=== PATIENT | female | born 1945 | race Caucasian/White ===

== ENCOUNTER 2018-05-21 18:43 | Inpatient (IN) ==
[2018-05-21 19:42] LABS: Bilirubin,Urine Negative (Negative); Blood,Urine Negative (Negative); Clarity,Urine Clear (Clear); Color,Urine Yellow (Yellow); Glucose,Urine (UA) 250 mg/dL (Normal); Ketones,Urine Negative (Negative); Leukocyte Esterase,Urine Negative (Negative); Nitrite,Urine Negative (Negative); Protein,Urine >=1000 mg/dL (Neg-Trace); Specific Gravity,Urine 1.025 (1.010-1.025); Urobilinogen,Urine Normal (Normal)
[2018-05-21 19:50] LABS: Bacteria,Urine None Seen per hpf (None-Few); Hyaline Casts,Urine None Seen per lpf (None-Few); Squamous Epithelial Cell,Urine Many per lpf (None-Few); WBC,Urine 15-30 per hpf (0-3)
[2018-05-21 20:05] LABS: Granular Casts,Urine Few per lpf (None Seen)
[2018-05-21 20:51] LABS: Basophils # 0.1 K/mcL (0.0-0.2); Basophils % 0.6 %; Eosinophils # 0.4 K/mcL (0.0-0.6); Eosinophils % 4.9 %; Hematocrit 27.6 % (35.3-44.9); Hemoglobin 8.8 g/dL (11.5-15.4); Immature Granulocytes % 0.3 % (0-4); Lymphocytes # 0.9 K/mcL (0.6-4.6); Lymphocytes % 10.7 %; Mean Corpuscular HGB Conc 31.9 g/dL (31.6-35.5); Mean Corpuscular Hemoglobin 29.3 pg (28.0-33.3); Mean Platelet Volume 10.3 fL (9.4-12.4); Monocytes # 0.6 K/mcL (0.0-1.3); Monocytes % 7.3 %; Neutrophils # 6.1 K/mcL (1.6-8.9); Platelet Count 270 K/mcL (140-400); Red Cell Distribution Width 13.3 % (11.5-14.5); Segmented Neutrophils % 76.2 %
[2018-05-21 21:29] LABS: Albumin 2.7 g/dL (3.5-5.7); Albumin/Globulin Ratio 0.8 (1.1-2.2); Bilirubin,Indirect 0.3 mg/dL (0.0-1.2); Bilirubin,Total 0.3 mg/dL (0.3-1.0); Calcium 8.8 mg/dL (8.6-10.3); Globulin 3.2 g/dL (2.4-3.5); Potassium 4.1 mEq/L (3.5-5.1); Total Protein 5.9 g/dL (6.4-8.9)
[2018-05-21] MEDS ORDERED: 0.9 % Sodium Chloride 1,000 ML IVC ONE (22:03)
[2018-05-21] MEDS ORDERED: Ondansetron 4 MG/2 ML VIAL IVP STA (22:03)
[2018-05-21] MEDS ORDERED: *HR* HYDROmorphone (PF) 1 MG/ML SYRINGE IVP ONE (22:03)
--- NOTE | 2018-05-21 22:06 | Emergency Department Note ---
Disposition Clinical Impression: Abdominal aortic atherosclerosis, Pancreatic mass, Renal mass Pancreatitis Qualifiers: Chronicity: acute Pancreatitis type: other Acute pancreatitis complication: unspecified Qualified Code(s): K85.80 - Other acute pancreatitis without necrosis or infection Disposition: Admitted As Inpatient Condition: Fair Time of Disposition: 22:55 Abdominal Pain HPI - General Chief Complaint: ED Abdominal Pain Stated Complaint: "Been Pretty Sick" Time Seen by Provider: 05/21/18 21:46 Source: patient Limitations: no limitations, age Vital Signs Reviewed: Yes - History of Present Illness HPI Narrative: Diabetic female patient presenting to emergency department with a three-day history of upper abdominal pain. She states her by mouth intake has been significantly decreased due to the pain. States that she is able to eat despite her tuning gets extreme pain in her upper abdomen. Denies any nausea or vomiting. Denies any trouble urinating or defecating. Does have a history of chronic kidney disease and has had a shunt placed in her right forearm for suspected need for dialysis in the future. She sees nephrology at [facility]. Does have a history of cardiac disease and has a pacemaker placed. She does report a cough. Denies any shortness of breath or chest pain. Has not tried anything to make this better or worse. No history of pancreatitis. She did have labs drawn in triage which showed an elevated lipase. Also an elevated creatinine. The creatinine is higher than her normal. Her hemoglobin is slightly lower but it is consistent with previous hematomas. We will get a CT of patient's abdomen and provide patient with pain relief at this time. We will also give her a liter of fluid. She does have pain to palpation of her epigastric and left upper quadrant. Pain Scale: 10 - Related Data Home Medications Medication Instructions Recorded Confirmed Aspirin [Ecotrin] 325 mg PO DAILY 03/19/16 03/19/16 Atorvastatin [Lipitor] 80 mg PO HS 03/19/16 03/19/16 Biotin 1,000 mcg PO BID 03/19/16 03/19/16 Cholecalciferol (Vitamin D3) 1,000 unit PO 1-3XD 03/19/16 03/19/16 [Vitamin D3] Clopidogrel [Plavix] 75 mg PO DAILY 03/19/16 03/19/16 Fenofibrate 150 mg PO DAILY 03/19/16 03/19/16 Gabapentin 300 mg PO DAILY 03/19/16 03/19/16 Hyoscyamine 0.125 mg PO Q8H PRN 03/19/16 03/20/16 Insulin ASPART [Novolog] 0 unit SQ ACHS 03/19/16 03/19/16 Insulin Glargine [Lantus] 50 unit SQ HS 03/19/16 03/19/16 Iron 65 mg PO DAILY 03/19/16 03/19/16 Isosorbide DInitrate [Isosorbide 20 mg PO DAILY 03/19/16 03/20/16 Dinitrate] Mecobalamin [B-12] 1,000 mcg PO DAILY 03/19/16 03/19/16 Metoprolol 100 mg PO DAILY 03/19/16 03/19/16 Ranitidine HCl 150 mg PO 1-2XD 03/19/16 03/19/16 Saxagliptin HCl [Onglyza] 5 mg PO DAILY 03/19/16 03/19/16 Vitamin E 400 unit PO DAILY 03/19/16 03/19/16 Previous Rx's Medication Instructions Recorded Furosemide [Lasix] 20 mg PO DAILY 365 Days 03/21/16 Lisinopril [Zestril] 40 mg PO DAILY #60 tablet 03/21/16 amLODIPine [Norvasc] 5 mg PO DAILY #30 tablet 03/21/16 hydrALAZINE [HydrALAZINE] 50 mg PO Q8H #90 tablet 03/21/16 Allergies Allergy/AdvReac Type Severity Reaction Status Date / Time olmesartan [From Benicar] Allergy Mild Gastrointestinal Verified 03/19/16 17:04 Upset Labetalol Allergy Gastrointestinal Verified 03/19/16 17:04 Upset All systems ED: reviewed and negative except as stated. Review of Systems: As Per HPI Constitutional: Reports: chills. Denies: fever Cardiovascular: Denies: chest pain, palpitations, syncope Respiratory: Reports: cough, wheezes. Denies: dyspnea Gastrointestinal: Reports: abdominal pain (3 days, epigastric), nausea. Denies: vomiting, diarrhea, hematemesis, melena, hematochezia Musculoskeletal: Reports: back pain (radiates from abdomen to back) Abdominal Pain PMH - Past Medical History Medical history: Reports: diabetes, hypertension, renal disease, other Female Surgical History: Reports: coronary bypass (CABG), hysterectomy, other Psychiatric history: Reports: no psych history - Social History Smoking status: Never smoker Alcohol use: Reports: none Drug use: Reports: none Physical Exam - General Limitations: no limitations General appearance: alert, in distress (in pain) - Head Head exam: atraumatic, normocephalic, normal inspection - Eye Eye exam: Present: normal appearance, PERRL, EOMI - ENT ENT exam: normal exam, normal oropharynx, mucous membranes moist - Neck Neck exam: Present: normal inspection, full ROM, trachea midline - Chest Chest inspection: Present: normal inspection, symmetric chest wall rise - Respiratory Respiratory exam: Present: normal lung sounds bilaterally. Absent: respiratory distress, wheezes, accessory muscle use - Cardiovascular Cardiovascular exam: Present: regular rate, normal rhythm, normal heart sounds - Abdominal Exam Abdominal exam: Present: soft, tenderness (epigastric, upper quadrants), guarding. Absent: distention, rebound, rigidity, organomegaly - Extremities Exam Extremities exam: Present: normal inspection, full ROM, normal capillary refill. Absent: tenderness, pedal edema - Neurological Exam Neurological exam: Present: alert, oriented X3 - Psychiatric Psychiatric exam: Present: normal affect, normal mood - Skin Skin exam: Present: warm, dry, intact, normal color. Absent: rash, cyanosis, diaphoresis Course Course Narrative: I discussed the patient's CT findings with her. We discussed that she has a small mass on her pancreas. She did not know about this. We discussed her worsening kidney function as well as the mass on her kidney. She states she was told previously that she did have a masseter kidney that needed to be evaluated however does not sound like it was as big the time. She is agreeable to admission at this time. We did provide patient with oral glucose that she was noted to have a lower glucose and we will place her on maintenance fluid. We also ordered a lactate as well as an EKG. - Consultations Consultation #1: Dr. Guzman accepted patient in stable condition. Time: 22:54 Vital Signs Temperature 98.7 F 05/21/18 19:04 Pulse Rate 61 05/21/18 19:04 Respiratory Rate 18 05/21/18 19:04 Blood Pressure 186/70 05/21/18 19:04 O2 Sat by Pulse Oximetry 99 05/21/18 19:04 Temperature 98.7 F 05/21/18 19:04 Pulse Rate 61 05/21/18 19:04 Respiratory Rate 18 04/05/19 19:04 Blood Pressure 186/70 05/21/18 19:04 O2 Sat by Pulse Oximetry 99 05/21/18 19:04 Oxygen Delivery Oxygen Delivery Room Air Abdominal Pain - Medical Records Medical records reviewed: Yes I reviewed the patient's medical records. - Lab Data Lab results reviewed: Yes I reviewed the patient's lab results. Result diagrams: 05/21/18 20:24 05/21/18 20:24 Lab Results 05/21/18 05/21/18 05/21/18 Range/Units 19:24 20:24 20:24 WBC 8.0 (4.3-11.1) K/mcL RBC 3.00 L (3.82-4.97) M/mcL Hgb 8.8 L (11.5-15.4) g/dL Hct 27.6 L (35.3-44.9) % MCV 92.0 (83.0-100.0) fL MCH 29.3 (28.0-33.3) pg MCHC 31.9 (31.6-35.5) g/dL RDW 13.3 (11.5-14.5) % Plt Count 270 (140-400) K/mcL MPV 10.3 (9.4-12.4) fL Immature Gran % 0.3 (0-4) % Seg Neutrophils % 76.2 % Lymphocytes % 10.7 % Monocytes % 7.3 % Eosinophils % 4.9 % Basophils % 0.6 % Neutrophils # 6.1 (1.6-8.9) K/mcL Lymphocytes # 0.9 (0.6-4.6) K/mcL Monocytes # 0.6 (0.0-1.3) K/mcL Eosinophils # 0.4 (0.0-0.6) K/mcL Basophils # 0.1 (0.0-0.2) K/mcL Sodium 141 (136-145) mEq/L Potassium 4.1 (3.5-5.1) mEq/L Chloride 109 H (98-107) mEq/L Carbon Dioxide 18 L (23-29) mEq/L BUN 86 H (8-23) mg/dL Creatinine 5.28 H (0.60-1.20) mg/dL Est GFR ( Amer) 10 L (> 60) Est GFR (Non-Af Amer) 8 L (> 60) BUN/Creatinine Ratio 16 (6-26) Glucose 78 (70-105) mg/dL POC Glucose (70-99) mg/dL Calculated Osmolality 317 H (280-300) Lactic Acid (0.5-2.2) mmol/L Calcium 8.8 (8.6-10.3) mg/dL Total Bilirubin 0.3 (0.3-1.0) mg/dL Direct Bilirubin 0.0 (0.0-0.2) mg/dL Indirect Bilirubin 0.3 (0.0-1.2) mg/dL AST 30 (13-39) Units/L ALT 22 (7-52) Units/L Alkaline Phosphatase 140 H (34-104) Units/L Serum Total Protein 5.9 L (6.4-8.9) g/dL Albumin 2.7 L (3.5-5.7) g/dL Globulin 3.2 (2.4-3.5) g/dL Albumin/Globulin Ratio 0.8 L (1.1-2.2) Lipase 803 H (11-82) Units/L Urine Color Yellow (Yellow) Urine Clarity Clear (Clear) Urine pH 6.0 (5.0-8.0) pH Units Ur Specific [place] 1.025 (1.010-1.025) Urine Protein >=1000 H (Neg-Trace) mg/dL Urine Glucose (UA) 250 H (Normal) mg/dL Urine Ketones Negative (Negative) mg/dL Urine Blood Negative (Negative) Urine Nitrite Negative (Negative) Urine Bilirubin Negative (Negative) Urine Urobilinogen Normal (Normal) mg/dL Ur Leukocyte Esterase Negative (Negative) Urine Microscopic RBC 3-5 H (0-3) per hpf Urine Microscopic WBC 15-30 H (0-3) per hpf Ur Squamous Epith Cells Many H (None-Few) per lpf Urine Bacteria None Seen (None-Few) per hpf Hyaline Casts None Seen (None-Few) per lpf Granular Casts Few H (None Seen) per lpf Ur Culture Indicated? NO (NO) 05/21/18 05/21/18 Range/Units 22:34 22:52 WBC (4.3-11.1) K/mcL RBC (3.82-4.97) M/mcL Hgb (11.5-15.4) g/dL Hct (35.3-44.9) % MCV (83.0-100.0) fL MCH (28.0-33.3) pg MCHC (31.6-35.5) g/dL RDW (11.5-14.5) % Plt Count (140-400) K/mcL MPV (9.4-12.4) fL Immature Gran % (0-4) % Seg Neutrophils % % Lymphocytes % % Monocytes % % Eosinophils % % Basophils % % Neutrophils # (1.6-8.9) K/mcL Lymphocytes # (0.6-4.6) K/mcL Monocytes # (0.0-1.3) K/mcL Eosinophils # (0.0-0.6) K/mcL Basophils # (0.0-0.2) K/mcL Sodium (136-145) mEq/L Potassium (3.5-5.1) mEq/L Chloride (98-107) mEq/L Carbon Dioxide (23-29) mEq/L BUN (8-23) mg/dL Creatinine (0.60-1.20) mg/dL Est GFR ( Amer) (> 60) Est GFR (Non-Af Amer) (> 60) BUN/Creatinine Ratio (6-26) Glucose (70-105) mg/dL POC Glucose 67 L (70-99) mg/dL Calculated Osmolality (280-300) Lactic Acid 0.3 L (0.5-2.2) mmol/L Calcium (8.6-10.3) mg/dL Total Bilirubin (0.3-1.0) mg/dL Direct Bilirubin (0.0-0.2) mg/dL Indirect Bilirubin (0.0-1.2) mg/dL AST (13-39) Units/L ALT (7-52) Units/L Alkaline Phosphatase (34-104) Units/L Serum Total Protein (6.4-8.9) g/dL Albumin (3.5-5.7) g/dL Globulin (2.4-3.5) g/dL Albumin/Globulin Ratio (1.1-2.2) Lipase (11-82) Units/L Urine Color (Yellow) Urine Clarity (Clear) Urine pH (5.0-8.0) pH Units Ur Specific [place] (1.010-1.025) Urine Protein (Neg-Trace) mg/dL Urine Glucose (UA) (Normal) mg/dL Urine Ketones (Negative) mg/dL Urine Blood (Negative) Urine Nitrite (Negative) Urine Bilirubin (Negative) Urine Urobilinogen (Normal) mg/dL Ur Leukocyte Esterase (Negative) Urine Microscopic RBC (0-3) per hpf Urine Microscopic WBC (0-3) per hpf Ur Squamous Epith Cells (None-Few) per lpf Urine Bacteria (None-Few) per hpf Hyaline Casts (None-Few) per lpf Granular Casts (None Seen) per lpf Ur Culture Indicated? (NO) - Radiology Data Radiology results reviewed: Yes I reviewed the patient's radiology results. Abdomen/Pelvis CT 05/21/18 21:49 IMPRESSION: Acute interstitial edematous pancreatitis. No acute peripancreatic fluid collection. Left renal inferior pole exophytic mass is suspicious for renal cell carcinoma. Consider dedicated renal protocol CT or MRI. Features of volume overload, including small bilateral pleural effusions, soft tissue anasarca and pelvic ascites which likely reflects third-spacing of fluid related to pancreatitis. Heavy aortic and branch vessel atherosclerotic calcifications with probable severe narrowing at the superior mesenteric artery origin. 8 mm focus within the pancreatic body most likely represents a tiny IPMN. D/ / 05/21/2018 22:29:23 Juan Orozco / [facility] Interpreting Provider: Juan Orozco Chest X-Ray 05/21/18 22:05 IMPRESSION: Small pleural effusions. D/ / 05/21/2018 22:33:56 Addi Caal MD / [facility] Interpreting Provider: Addi Caal MD - EKG Data EKG attestation: Yes I reviewed and interpreted this EKG. EKG results narrative: Atrially paced rhythm at a rate of 67. QRS duration is 158. QT is 478. QTC is 501. Patient does have a right bundle branch block. We do have an old EKG from 2017 shows a different morphology. Patient does not meet scarbossa criteria Attestation Statement - Attestation Attestation: I, Arpan Gutierrez, examined this patient and my medical decision-making was reviewed with the ALARM SERVICE TECHNICIAN/PA/Advanced Practice Nurse/Resident Physician. I agree with the documented findings, disposition and treatment plan as described except to the extent set forth below. 73-year-old female presents emergency Department with concerns of nausea, vomiting, epigastric abdominal pain. Patient states symptoms present over the past 3 days. Denies recent trauma. No history of pancreatitis. Patient had labs that were drawn in the lobby. Review of these labs during her initial evaluation shows that she has a significantly elevated lipase compared to previous labs. Patient presentation is consistent with pancreatitis. CT CT of the abdomen shows acute pancreatitis with possible IPMN. Patient given a liter fluid emergency department. Her pain is well controlled. She felt comfortable with the plan for admission to hospital for further care and evaluation.
[2018-05-21] MEDS ORDERED: Dextrose Gel 15 GM/37.5 ML TUBE PO STA (22:36)
[2018-05-21] MEDS: D5% in 0.9% NACL 1,000 ML IVC SCH (22:56)
[2018-05-22] MEDS ORDERED: Naloxone 0.4 MG/ML INJ IVP PRN (01:20)
[2018-05-22] MEDS ORDERED: Ringers Solution, Lactated 1,000 ML IVC SCH (01:30)
[2018-05-22] MEDS ORDERED: *HR* Dextrose 50 % in Water (Syg) 50 ML SYRINGE IVP PRN (01:35)
[2018-05-22] MEDS ORDERED: Dextrose Gel 15 GM/37.5 ML TUBE PO PRN ×2 (01:35)
[2018-05-22] MEDS ORDERED: D5% in Water 1,000 ML IVC PRN (01:35)
--- NOTE | 2018-05-22 01:46 | Internal Med History&Physical ---
<DrewJaqueline lrra C - Last Filed: 05/22/18 05:21> Date of Encounter: 05/22/18 Time of Encounter: 03:03 Internal Medicine - H&P: HPI Chief complaint: abdominal pain Admitted From: Emergency Dept History of present illness: Ms. Singleton is a 73 year old female with a history of ESRD, CAD s/p pacemaker, CABG and stents, hypertension, and diabetes who presented to the ER with complaint of severe abdominal pain for the past 3 days, found to have acute pancreatitis and suspicious pancreatic and renal lesions. She admits to decreased oral intake, but denies nausea or vomiting and has been able to take her home medications. She denies any previous episodes of pancreatitis. Denies alcohol use. She denies any recent sick contacts, fever, chills, diarrhea or constipation. She states that she has not been well for at least the past year and is unsure why exactly her health has declined. She receives most of her medical care in [place] including her bisque finisher at [facility]. She had a fistula placed approximately 7 weeks ago anticipating need for dialysis. She reports history of renal cyst that has been followed by nephrology at [facility]. She admits to chronic lower extremity edema and takes 80 mg Lasix twice a day. She denies any lightheadedness, chest pain, palpitations, shortness of breath, or urinary symptoms. ER course: Afebrile, HR 61, RR 18, BP 186/70, 99% on room air Hemoglobin 8.8, near baseline PT/INR 12.6 over 1.1 Potassium 4.1 Creatinine 5.28 GFR 8, approximate baseline of 4 with GFR of 15 Lactic acid 0.3 T bili 0.3, AST 30, ALT 22, alkaline phosphatase 140 Lipase 803 POC glucose 67 UA protein greater than 1000, glucose 250, nitrite negative, leukocyte esterase negative CXR small bilateral pleural effusions CT abdomen/pelvis acute pancreatitis without fluid collection. Left renal exophytic mass suspicious for RCC. Small bilateral pleural effusions, soft tissue anasarca and pelvic ascites. 8 mm focus within pancreatic body suspicious for IPMN. s/p 1 L NS fluid bolus Hydromorphone 1 mg IV 1 Glucose 15 g by mouth 1 Zofran 8 mg IV 1 Past Med Surg Social Fam HX - Past Medical History Medical history: diabetes, hypertension, renal disease, other Additional medical history: Stage 4 Kidney Failure Psychiatric history: no psych history - Past Surgical History Surgical History: coronary bypass (CABG), hysterectomy, pacemaker/AICD Additional surgical history: Gallbadder removal , triple bypass 94 - Social History Smoking Status: Never smoker Smokeless Tobacco Status: No Alcohol use: none Drug use: none - Family History Mother Hx Family Cardiac Disorders: Yes (hypertension) Internal Medicine - H&P: Meds Aspirin [Ecotrin] 81 mg PO DAILY 03/19/16 [History] Atorvastatin [Lipitor] 80 mg PO HS 03/19/16 [History] Biotin 1,000 mcg PO BID 03/19/16 [History] Cholecalciferol (Vitamin D3) [Vitamin D3] 1,000 unit PO 1-3XD 03/19/16 [History] Clopidogrel [Plavix] 75 mg PO DAILY 03/19/16 [History] Fenofibrate 150 mg PO DAILY 03/19/16 [History] Gabapentin 300 mg PO DAILY 03/19/16 [History] Hyoscyamine 0.125 mg PO Q8H PRN 03/19/16 [History] Insulin ASPART [Novolog] 0 unit SQ ACHS 03/19/16 [History] Insulin Glargine [Lantus] 20 unit SQ DAILY 03/19/16 [History] Iron 65 mg PO DAILY 03/19/16 [History] Isosorbide DInitrate [Isosorbide Dinitrate] 20 mg PO BID 03/19/16 [History] Mecobalamin [B-12] 1,000 mcg PO DAILY 03/19/16 [History] Metoprolol 100 mg PO DAILY 03/19/16 [History] Ranitidine HCl 150 mg PO 1-2XD 03/19/16 [History] Saxagliptin HCl [Onglyza] 5 mg PO DAILY 03/19/16 [History] Vitamin E 400 unit PO DAILY 03/19/16 [History] Lisinopril [Zestril] 40 mg PO DAILY #60 tablet 03/21/16 [Rx] amLODIPine [Norvasc] 5 mg PO DAILY #30 tablet 03/21/16 [Rx] Furosemide [Lasix] 20 mg PO BID 05/22/18 [History] hydrALAZINE [HydrALAZINE] 100 mg PO Q12HR 05/22/18 [History] Allergy/AdvReac Type Severity Reaction Status Date / Time olmesartan [From Benicar] Allergy Mild Gastrointestinal Verified 03/19/16 17:04 Upset Labetalol Allergy Gastrointestinal Verified 03/19/16 17:04 Upset All Systems PM: A 10-system review of systems was performed and is negative for pertinent findings except as documented above in the HPI. - Constitutional Constitutional: no chills, no fever(s) - EENT Eyes: no blurry vision, no change in vision - Cardiovascular Cardiovascular ROS IM: edema, lightheadedness (when her glucose is low), no chest pain, no dyspnea, no palpitations, no syncope - Respiratory Respiratory: no cough, no dyspnea, no hemoptysis - Gastrointestinal Gastrointestinal: abdominal pain, belching, no change in bowel habits, no hematemesis, no hematochezia, no melena, no nausea, no vomiting - Genitourinary Genitourinary: no dysuria, no hematuria - Musculoskeletal Musculoskeletal ROS IM: no back pain - Integumentary Integumentary IM: no new lesions, no rash - Neurological Neurological ROS: no dizziness, no frequent falls, no headache(s) - Psychiatric Psychiatric: change in appetite (decreased), no behavioral changes - Constitutional Vitals: Temp Pulse Resp BP Pulse Ox 97.7 F 60 18 178/65 98 05/22/18 01:21 05/22/18 01:21 05/22/18 01:21 05/22/18 01:21 05/22/18 01:21 General appearance: Present: A&O X 3, pleasant, no acute distress, answers questions appropriately Exam: see above - Head Head exam: Present: atraumatic, normocephalic - Eye Eye exam: Present: EOMI, conjuntiva pink, sclera anicteric - ENT ENT exam: Present: mucous membranes dry - Neck Neck exam general surgery: Present: supple, trachea midline - Respiratory Respiratory exam: Present: CTAB. Absent: accessory muscle use, rales, rhonchi, wheezes - Cardiovascular Cardiovascular exam: Present: RRR, +S1, +S2. Absent: diastolic murmur, rubs, systolic murmur - GI/Abdominal GI/Abdominal exam: Present: normal bowel sounds, soft, tenderness (Midline and LUQ), no peritoneal signs. Absent: distended - Extremities Exam Extremities exam: Present: pedal edema (2+ pitting edema), radial pulses palpable and symmetrical. Absent: calf tenderness, cyanotic, tenderness - Neurological Exam Neurological exam: Present: oriented X3, no focal deficits. Absent: pronater drift, facial droop, speech deficit - Psychiatric Psychiatric exam: Present: normal affect, normal mood - Skin Skin exam: Present: dry, intact, warm. Absent: diaphoretic, rash Internal Med - H&P Results - Labs CBC & Chem 7: 05/22/18 03:36 05/22/18 03:36 Labs: Short CBC 05/21/18 Range/Units 20:24 WBC 8.0 (4.3-11.1) K/mcL Hgb 8.8 L (11.5-15.4) g/dL Hct 27.6 L (35.3-44.9) % Plt Count 270 (140-400) K/mcL Neutrophils # 6.1 (1.6-8.9) K/mcL BMP 05/21/18 20:24 Sodium 141 Potassium 4.1 Chloride 109 H Carbon Dioxide 18 L BUN 86 H Creatinine 5.28 H Glucose 78 Calcium 8.8 Liver Function 05/21/18 Range/Units 20:24 Total Bilirubin 0.3 (0.3-1.0) mg/dL Direct Bilirubin 0.0 (0.0-0.2) mg/dL AST 30 (13-39) Units/L ALT 22 (7-52) Units/L Alkaline Phosphatase 140 H (34-104) Units/L Albumin 2.7 L (3.5-5.7) g/dL Urine 05/21/18 Range/Units 19:24 Urine Color Yellow (Yellow) Urine Clarity Clear (Clear) Urine pH 6.0 (5.0-8.0) pH Units Ur Specific [place] 1.025 (1.010-1.025) Urine Protein >=1000 H (Neg-Trace) mg/dL Urine Glucose (UA) 250 H (Normal) mg/dL - Impressions ITS Impressions Abdomen/Pelvis CT 05/21/18 21:49 IMPRESSION: Acute interstitial edematous pancreatitis. No acute peripancreatic fluid collection. Left renal inferior pole exophytic mass is suspicious for renal cell carcinoma. Consider dedicated renal protocol CT or MRI. Features of volume overload, including small bilateral pleural effusions, soft tissue anasarca and pelvic ascites which likely reflects third-spacing of fluid related to pancreatitis. Heavy aortic and branch vessel atherosclerotic calcifications with probable severe narrowing at the superior mesenteric artery origin. 8 mm focus within the pancreatic body most likely represents a tiny IPMN. D/ / 05/21/2018 22:29:23 Juan Orozco / dayanara Interpreting Provider: Juan Orozoc Chest X-Ray 05/21/18 22:05 IMPRESSION: Small pleural effusions. D/ / 05/21/2018 22:33:56 Addi Caal MD / dayanara Interpreting Provider: Addi Caal MD - Assessment and Plan (1) Pancreatitis Current Visit: Yes Status: Acute Assessment and plan: Unclear etiology, patient denies previous episodes, nonsmoker, no alcohol consumption CT abdomen/pelvis with evidence for acute pancreatitis Lipase 803 Repeat Amylase, Lipase, LFTs pending Continue IVFs, monitor closely due to ESRD Continue supportive care and pain management NPO GI consult pending Qualifiers: Chronicity: acute Pancreatitis type: other Acute pancreatitis complication: unspecified Qualified Code(s): K85.80 - Other acute pancreatitis without necrosis or infection (2) Acute kidney injury superimposed on chronic kidney disease Current Visit: Yes Status: Acute Assessment and plan: ESRD not currently on dialysis, fistula in place NETTE likely secondary to dehydration with decreased by mouth intake versus worsening kidney disease Creatinine 5.28 GFR 8, approximate baseline of 4 with GFR of 15 Continue IVFs Holding Lasix due to acute kidney injury Avoid nephrotoxins if possible Nephrology consult pending (3) Pancreatic mass Current Visit: Yes Status: Acute Assessment and plan: CT abdomen/pelvis with hypodensity along the mid body suspicious for an IPMN and in no significant duct dilation GI consult pending Cannot have MRI due to pacemaker Continue supportive care and pain management (4) Renal mass Current Visit: Yes Status: Acute Assessment and plan: Patient reports history of renal cyst, has been following with nephrology at [facility] CT abdomen/pelvis with left renal inferior pole exophytic mass suspicious for RCC Consider dedicated renal protocol CT Urology consult pending Cannot do MRI due to pacemaker (5) Anemia Current Visit: No Status: Chronic Assessment and plan: Chronic, at baseline Patient asymptomatic Hemoglobin 8.8 Continue to monitor Qualifiers: Anemia type: unspecified type Qualified Code(s): D64.9 - Anemia, unspecified (6) DM type 2 (diabetes mellitus, type 2) Current Visit: Yes Status: Chronic Assessment and plan: Insulin-dependent Glucose 68 on presentation, now 120s s/p 18 g by mouth glucose and D5 NPO, every 6 hours Accu-Checks Hold insulin for now Qualifiers: Diabetes mellitus manager intermediate insulin use: with fdc use Diabetes iliana itus complication status: with kidney complications Diabetes mellitus com plication detail: with chronic kidney disease Chronic kidney disease stage: stage 4 (severe) Qualified Code(s): E11.22 - Type 2 diabetes mellitus with diabetic chronic kidney disease; N18.4 - Chronic kidney disease, stage 4 (severe); Z79.4 - intermediate (current) use of insulin (7) Hypertension Current Visit: Yes Status: Chronic Assessment and plan: Hypertensive 170s systolic, denies chest pain or headache Resume home meds once verified Hydralazine 5 mg IV 1 Hydralazine 10 mg IV PRN for SBP greater than 150 Qualifiers: Hypertension type: essential hypertension Qualified Code(s): I10 - Essential (primary) hypertension (8) CAD (coronary artery disease) Current Visit: Yes Status: Acute Assessment and plan: Follows with Dr. Ramy Rincon echo unknown s/p CABG and stents Pacemaker Resume home meds once confirmed Qualifiers: Coronary Disease-Associated Artery/Lesion type: bypass graft [place] vs. transplanted heart: [place] heart Associated angina: angina presence unspecified Qualified Code(s): I25.810 - Atherosclerosis of coronary artery bypass graft(s) without angina pectoris (9) DVT prophylaxis Current Visit: Yes Status: Acute Assessment and plan: SQ Heparin - Time Spent With Patient Total time spent is greater than 50% in coordination of care (as documented) at patient's floor/unit and/or counseling patient: Greater than 35 minutes <Jeffery Raymundo - Last Filed: 05/22/18 07:00> Date of Encounter: 05/22/18 Time of Encounter: 05:25 - Constitutional Constitutional: no chills, no fever(s) - EENT Eyes: no change in vision Ears: no ear pain, no tinnitus Nose, mouth and throat: no nasal congestion, no sore throat - Cardiovascular Cardiovascular ROS IM: no chest pain, no dyspnea - Respiratory Respiratory: no cough, no dyspnea, no chest congestion, no pain with cough - Gastrointestinal Gastrointestinal: abdominal pain, belching, nausea, no melena, no vomiting - Genitourinary Genitourinary: no dysuria, no flank pain - Musculoskeletal Musculoskeletal ROS IM: no arthralgias, no back pain - Integumentary Integumentary IM: no rash, no jaundice - Neurological Neurological ROS: no disequilibrium, no dizziness, no focal weakness, no frequent falls, no headache(s) - Psychiatric Psychiatric: change in appetite, no anxiety, no depression - Endocrine Endocrine IM: no polydipsia, no polyuria - Allergic/Immunologic Allergic/Immunologic: GI upset with certain foods - Constitutional Vitals: Temp Pulse Resp BP Pulse Ox 97.4 F L 62 16 205/65 98 05/22/18 06:33 05/22/18 06:33 05/22/18 06:33 05/22/18 06:33 05/22/18 06:33 General appearance: Present: A&O X 3, pleasant, no acute distress, answers questions appropriately - Head Head exam: Present: normal inspection - Eye Eye exam: Present: EOMI, PERRL. Absent: scleral icterus Pupils: Present: normal accommodation - ENT ENT exam: Present: mucous membranes dry, normal exam, normal oropharynx - Neck Neck exam general surgery: Present: full ROM, supple, trachea midline. Absent: tenderness, nuchal rigidity - Respiratory Respiratory exam: Present: CTAB. Absent: rales, rhonchi, wheezes - Cardiovascular Cardiovascular exam: Present: distant heart sounds, +S1, +S2. Absent: diastolic murmur, systolic murmur - GI/Abdominal GI/Abdominal exam: Present: normal bowel sounds, soft, tenderness (epigastric), no peritoneal signs. Absent: distended, hepatomegaly - Extremities Exam Extremities exam: Present: pedal edema, warm, radial pulses palpable and symmetrical. Absent: calf tenderness - Back Exam Back exam: Absent: CVA tenderness (L), CVA tenderness (R) - Neurological Exam Neurological exam: Present: alert, CN II-XII intact, oriented X3, no focal deficits, strengths equal and symetr throughout - Psychiatric Psychiatric exam: Present: normal affect, normal mood - Skin Skin exam: Present: dry, intact, warm Internal Med - H&P Results - Labs CBC & Chem 7: 05/22/18 03:36 05/22/18 03:36 Labs: Short CBC 05/21/18 05/22/18 Range/Units 20:24 03:36 WBC 8.0 6.7 (4.3-11.1) K/mcL Hgb 8.8 L 8.0 L (11.5-15.4) g/dL Hct 27.6 L 24.9 L (35.3-44.9) % Plt Count 270 198 (140-400) K/mcL Neutrophils # 6.1 (1.6-8.9) K/mcL BMP 05/21/18 05/22/18 20:24 03:36 Sodium 141 139 Potassium 4.1 4.1 Chloride 109 H 111 H Carbon Dioxide 18 L 17 L BUN 86 H 83 H Creatinine 5.28 H 4.98 H Glucose 78 123 H Calcium 8.8 8.3 L Liver Function 05/21/18 05/22/18 Range/Units 20:24 03:36 Total Bilirubin 0.3 0.2 L (0.3-1.0) mg/dL Direct Bilirubin 0.0 0.1 (0.0-0.2) mg/dL AST 30 29 (13-39) Units/L ALT 22 20 (7-52) Units/L Alkaline Phosphatase 140 H 126 H (34-104) Units/L Albumin 2.7 L 2.6 L (3.5-5.7) g/dL Urine 05/21/18 Range/Units 19:24 Urine Color Yellow (Yellow) Urine Clarity Clear (Clear) Urine pH 6.0 (5.0-8.0) pH Units Ur Specific [place] 1.025 (1.010-1.025) Urine Protein >=1000 H (Neg-Trace) mg/dL Urine Glucose (UA) 250 H (Normal) mg/dL - Impressions ITS Impressions Abdomen/Pelvis CT 05/21/18 21:49 IMPRESSION: Acute interstitial edematous pancreatitis. No acute peripancreatic fluid collection. Left renal inferior pole exophytic mass is suspicious for renal cell carcinoma. Consider dedicated renal protocol CT or MRI. Features of volume overload, including small bilateral pleural effusions, soft tissue anasarca and pelvic ascites which likely reflects third-spacing of fluid related to pancreatitis. Heavy aortic and branch vessel atherosclerotic calcifications with probable severe narrowing at the superior mesenteric artery origin. 8 mm focus within the pancreatic body most likely represents a tiny IPMN. D/ / 05/21/2018 22:29:23 Juan Orozco / dayanara Interpreting Provider: Juan Orozco Chest X-Ray 05/21/18 22:05 IMPRESSION: Small pleural effusions. D/ / 05/21/2018 22:33:56 Addi Caal MD / dayanara Interpreting Provider: Addi Caal MD - Diagnostic Studies CT scan - abdomen Status: image reviewed by me (pancreatitis; left renal mass) - Time Spent With Patient Total time spent is greater than 50% in coordination of care (as documented) at patient's floor/unit and/or counseling patient: - Attending Attestation I discussed the patient CHITINA, past medical history, review of systems, lab data, imaging data, and exam findings with Dr. Herrera. I then saw and examined patient independently as well. I then interviewed her as well and obtained more information. Patient presented with abdominal pain with some nausea and some vomiting. She denies any jaundice or rash. Imaging in the ER performed today reveals findings concerning for possible renal cell carcinoma of the kidney as well as a lesion in her pancreas. I discussed this at length with patient and recommended consultation with GI, nephrology, and urology. Most for healthcare has been performed at [facility] in [place]. She does see a local seat trimmer now, Dr. Mccann. She therefore prefers to stay here proceed with workup. We will consult the specialists and ask them to assist us in her care. Unfortunately, patient is unable to undergo MRI due to her pacemaker. We will consult urology and nephrology to assist with possible need for dialysis and work up for kidney mass. If there is concern this is truly renal cell carcinoma, she will likely benefit from total nephrectomy of that lesion. However, I will deferred that urology. I explained this to patient and she is agreeable to proceed if necessary. For now, we will treat her conservatively with IV fluids, pain control, nausea control, and nothing by mouth status. Meanwhile, we will proceed with workup as above and monitor her clinically. Other than my comments above and exam findings, I agree with Dr. Herrera's assessment and plan.
[2018-05-22 04:19] LABS: Hematocrit 24.9 % (35.3-44.9); Mean Corpuscular HGB Conc 32.1 g/dL (31.6-35.5); Mean Corpuscular Hemoglobin 29.9 pg (28.0-33.3); Mean Corpuscular Volume 92.9 fL (83.0-100.0); Mean Platelet Volume 10.4 fL (9.4-12.4); Platelet Count 198 K/mcL (140-400); Red Blood Count 2.68 M/mcL (3.82-4.97); Red Cell Distribution Width 13.4 % (11.5-14.5)
[2018-05-22 04:27] LABS: INR 1.1; Prothrombin Time 12.6 Seconds (9.4-12.1)
[2018-05-22 04:30] LABS: Activated Partial Thrombo Time 34.6 Seconds (26.0-36.0)
[2018-05-22 04:41] LABS: Calcium 8.3 mg/dL (8.6-10.3); Magnesium 1.5 mg/dL (1.6-2.6); Potassium 4.1 mEq/L (3.5-5.1)
[2018-05-22 06:33] LABS: Albumin 2.6 g/dL (3.5-5.7); Bilirubin,Direct 0.1 mg/dL (0.0-0.2); Bilirubin,Indirect 0.1 mg/dL (0.0-1.2); Bilirubin,Total 0.2 mg/dL (0.3-1.0); Globulin 2.7 g/dL (2.4-3.5); Total Protein 5.3 g/dL (6.4-8.9)
[2018-05-22] MEDS: *HR* Heparin 5,000 UNIT/ML VIAL SQ SCH ×2 (06:38→16:28)
[2018-05-22] MEDS: hydrALAZINE 25 MG TABLET PO SCH ×2 (08:11→15:18)
--- NOTE | 2018-05-22 08:22 | Urology - Consult Note ---
Date of Encounter: 05/22/18 Time of Encounter: 08:20 - Assessment and Plan (1) Renal mass Current Visit: Yes Status: Acute Assessment and plan: I personally reviewed the CT scan which reveals a possible solid 3 cm renal mass in the left kidney. The CT scan was noncontrasted and is not completely evaluate the lesion. Unable to obtain a contrast study because of her renal insufficiency. We can consider further evaluation on an outpatient basis with renal ultrasound or even a contrast study if timed with hemodialysis which may be eminent. We did discuss that the lesion could be employee relations representative of a small renal cell carcinoma which often has a indolent growth pattern and could be observed in this patient with significant comorbidities. In addition, percutaneous cryotherapy could be considered as an alternative to a robotic partial nephrectomy because of the patient's comorbidities. Patient has ultrasound scheduled in [place] at the end of the month. she was undecided if she wants further workup here. ok to order renal ultrasound if she desires. All questions addressed Urology CN:HPI Consult date: 05/22/18 Reason for consult Urology: Other History of present illness: 73 year old female with a history of ESRD, CAD s/p pacemaker, CABG and stents, hypertension, and diabetes who presented to the ER with complaint of severe abdominal pain for the past 3 days, found to have acute pancreatitis. CT scan also revealed a 3 cm left renal mass. Radiology recommends further evaluation. On further questioning the patient states that she has had a renal cyst followed by her student support advisor in [place]. No gross hematuria Past Med Surg Social Fam HX - Past Medical History Medical history: diabetes, hypertension, renal disease, other Additional medical history: Stage 4 Kidney Failure Psychiatric history: no psych history - Past Surgical History Surgical History: coronary bypass (CABG), hysterectomy, pacemaker/AICD Additional surgical history: Gallbadder removal , triple bypass 94 - Social History Smoking Status: Never smoker Smokeless Tobacco Status: No Alcohol use: none Drug use: none - Family History Mother Hx Family Cardiac Disorders: Yes (hypertension) Medications and Allergies Aspirin [Ecotrin] 81 mg PO DAILY 03/19/16 [History] Atorvastatin [Lipitor] 80 mg PO HS 03/19/16 [History] Biotin 1,000 mcg PO BID 03/19/16 [History] Cholecalciferol (Vitamin D3) [Vitamin D3] 1,000 unit PO 1-3XD 03/19/16 [History] Clopidogrel [Plavix] 75 mg PO DAILY 03/19/16 [History] Fenofibrate 150 mg PO DAILY 03/19/16 [History] Gabapentin 300 mg PO DAILY 03/19/16 [History] Hyoscyamine 0.125 mg PO Q8H PRN 03/19/16 [History] Insulin ASPART [Novolog] 0 unit SQ ACHS 03/19/16 [History] Insulin Glargine [Lantus] 20 unit SQ DAILY 03/19/16 [History] Iron 65 mg PO DAILY 03/19/16 [History] Isosorbide DInitrate [Isosorbide Dinitrate] 20 mg PO BID 03/19/16 [History] Mecobalamin [B-12] 1,000 mcg PO DAILY 03/19/16 [History] Metoprolol 100 mg PO DAILY 03/19/16 [History] Ranitidine HCl 150 mg PO 1-2XD 03/19/16 [History] Saxagliptin HCl [Onglyza] 5 mg PO DAILY 03/19/16 [History] Vitamin E 400 unit PO DAILY 03/19/16 [History] Lisinopril [Zestril] 40 mg PO DAILY #60 tablet 03/21/16 [Rx] amLODIPine [Norvasc] 5 mg PO DAILY #30 tablet 03/21/16 [Rx] Furosemide [Lasix] 20 mg PO BID 05/22/18 [History] hydrALAZINE [HydrALAZINE] 100 mg PO Q12HR 05/22/18 [History] Allergy/AdvReac Type Severity Reaction Status Date / Time olmesartan [From [facility]] Allergy Mild Gastrointestinal Verified 03/19/16 17:04 Upset Labetalol Allergy Gastrointestinal Verified 03/19/16 17:04 Upset Review of Systems - Constitutional fatigue, weakness, no fever(s) - EENT Nose, mouth and throat: dizziness, dry mouth - Cardiovascular no chest pain - Respiratory dyspnea, no cough - Gastrointestinal abdominal pain, nausea - Genitourinary Genitourinary: flank pain - Musculoskeletal back pain - Integumentary erythema - Neurological no confusion - Psychiatric anxiety - Hematologic/Lymphatic no easy bleeding - Allergic/Immunologic no throat swelling Exam Initial Vital Signs Temp Pulse Resp BP Pulse Ox 98.7 F 61 18 186/70 99 05/21/18 19:04 05/21/18 19:04 05/21/18 19:04 05/21/18 19:04 05/21/18 19:04 - General physical appearance Present: no distress, chronically ill - Eyes Present: PERRL, conjunctiva is clear - ENT Present: normal nares - Neck Present: no masses, no lymphadenopathy - Respiratory Present: normal respiratory effort - Cardiovascular Cardiovascular exam IM: RRR - Abdomen Abdomen: Present: soft, tender (Nonacute) - Integumentary Present: no rash, no growths, no abnormal pigmentation - Neurologic Present: normal coordination. Absent: disoriented, confused Urology Results - Labs 05/22/18 03:36 05/22/18 03:36 Abnormal lab results RBC 2.68 M/mcL (3.82-4.97) L 05/22/18 03:36 Hgb 8.0 g/dL (11.5-15.4) L 05/22/18 03:36 Hct 24.9 % (35.3-44.9) L 05/22/18 03:36 PT 12.6 Seconds (9.4-12.1) H 05/22/18 03:36 Chloride 111 mEq/L (98-107) H 05/22/18 03:36 Carbon Dioxide 17 mEq/L (23-29) L 05/22/18 03:36 BUN 83 mg/dL (8-23) H 05/22/18 03:36 Creatinine 4.98 mg/dL (0.60-1.20) H 05/22/18 03:36 Est GFR ( Amer) 10 (> 60) L 05/22/18 03:36 Est GFR (Non-Af Amer) 9 (> 60) L 05/22/18 03:36 Glucose 123 mg/dL (70-105) H 05/22/18 03:36 POC Glucose 67 mg/dL (70-99) L 05/21/18 22:34 Calculated Osmolality 314 (280-300) H 05/22/18 03:36 Lactic Acid 0.3 mmol/L (0.5-2.2) L 05/21/18 22:52 Calcium 8.3 mg/dL (8.6-10.3) L 05/22/18 03:36 Magnesium 1.5 mg/dL (1.6-2.6) L 05/22/18 03:36 Total Bilirubin 0.2 mg/dL (0.3-1.0) L 05/22/18 03:36 Alkaline Phosphatase 126 Units/L (34-104) H 05/22/18 03:36 Serum Total Protein 5.3 g/dL (6.4-8.9) L 05/22/18 03:36 Albumin 2.6 g/dL (3.5-5.7) L 05/22/18 03:36 Albumin/Globulin Ratio 1.0 (1.1-2.2) L 05/22/18 03:36 Amylase 238 Units/L (29-103) H 05/22/18 03:36 Lipase 558 Units/L (11-82) H 05/22/18 03:36 Urine Protein >=1000 mg/dL (Neg-Trace) H 05/21/18 19:24 Urine Glucose (UA) 250 mg/dL (Normal) H 05/21/18 19:24 Urine Microscopic RBC 3-5 per hpf (0-3) H 05/21/18 19:24 Urine Microscopic WBC 15-30 per hpf (0-3) H 05/21/18 19:24 Ur Squamous Epith Cells Many per lpf (None-Few) H 05/21/18 19:24 Granular Casts Few per lpf (None Seen) H 05/21/18 19:24 Diabetes panel 05/21/18 05/22/18 Range/Units 20:24 03:36 Sodium 141 139 (136-145) mEq/L Potassium 4.1 4.1 (3.5-5.1) mEq/L Chloride 109 H 111 H (98-107) mEq/L Carbon Dioxide 18 L 17 L (23-29) mEq/L BUN 86 H 83 H (8-23) mg/dL Creatinine 5.28 H 4.98 H (0.60-1.20) mg/dL Glucose 78 123 H (70-105) mg/dL Calcium 8.8 8.3 L (8.6-10.3) mg/dL AST 30 29 (13-39) Units/L ALT 22 20 (7-52) Units/L Alkaline Phosphatase 140 H 126 H (34-104) Units/L Albumin 2.7 L 2.6 L (3.5-5.7) g/dL Calcium panel 05/21/18 05/22/18 Range/Units 20:24 03:36 Calcium 8.8 8.3 L (8.6-10.3) mg/dL Albumin 2.7 L 2.6 L (3.5-5.7) g/dL Pituitary panel 05/21/18 05/22/18 Range/Units 20:24 03:36 Sodium 141 139 (136-145) mEq/L Potassium 4.1 4.1 (3.5-5.1) mEq/L Chloride 109 H 111 H (98-107) mEq/L Carbon Dioxide 18 L 17 L (23-29) mEq/L BUN 86 H 83 H (8-23) mg/dL Creatinine 5.28 H 4.98 H (0.60-1.20) mg/dL Glucose 78 123 H (70-105) mg/dL Calcium 8.8 8.3 L (8.6-10.3) mg/dL Adrenal panel 05/21/18 05/22/18 Range/Units 20:24 03:36 Sodium 141 139 (136-145) mEq/L Potassium 4.1 4.1 (3.5-5.1) mEq/L Chloride 109 H 111 H (98-107) mEq/L Carbon Dioxide 18 L 17 L (23-29) mEq/L BUN 86 H 83 H (8-23) mg/dL Creatinine 5.28 H 4.98 H (0.60-1.20) mg/dL Glucose 78 123 H (70-105) mg/dL Calcium 8.8 8.3 L (8.6-10.3) mg/dL Total Bilirubin 0.3 0.2 L (0.3-1.0) mg/dL AST 30 29 (13-39) Units/L ALT 22 20 (7-52) Units/L Alkaline Phosphatase 140 H 126 H (34-104) Units/L Albumin 2.7 L 2.6 L (3.5-5.7) g/dL All other labs normal. Consult Discharge Plan - Plan Referrals: Susan Jules [Primary Care Provider] -
[2018-05-22] MEDS ORDERED: amLODIPine 5 MG TABLET PO SCH (09:00)
--- NOTE | 2018-05-22 11:27 | Event Note ---
Date of Encounter: 05/22/18 Time of Encounter: 11:19 I have seen and evaluated the patient and bedside. Reports improvement in her abdominal pain, reports is still feeling a little bit nauseated, denies chest pain Physical exam Vitals: Reviewed. General: Alert and oriented 4. In mild distress due to abdominal pain Cardiovascular: RRR, normal S1 & S2, no rubs, murmurs or gallops. Lungs: Clear to auscultation bilaterally, no wheezes or crackles. Abdomen:Soft, mild generalized tenderness to deep palpation, no rigidity. Extremities: 2+ edema in the lower extremity bilaterally Neurological: Normal cognition and motor skills. Rest of the physical exam is non contributory Assessment and Plan: 1. Pancreatitis 2. Renal mass 3. NETTE on CKD 4. Pancreatic mass 5. DM 6. Anemia 7. Hypertension 8. CAD 9. VTE prophylaxis Plan will start clear liquid diet continue IV hydration with D5NS @75ml/hr strict intake and out. close monitoring for signs of volume overload avoid nephrotoxic medications nephrology consulted. patient reports she is being prepared to start HD. but was told the fistula is not ready. on fentanyl 25 mcg/IV Q3HR PRN for pain control will resume home antihypertensive medications amlodipine 5mg/PO daily and hydralazine 25mg/PO TID on hydralazine 5mg/IV Q6HRs for SBP >180 Urology recommendations appreciated GI consulted. on heparin for dvt prophylaxis Disposition: Patient to remain in the hospital due to pancreatitis.
[2018-05-22] MEDS: Pantoprazole 40 MG VIAL IVP SCH (12:04)
[2018-05-22] MEDS: Insulin LISPRO 300 UNITS/3 ML VIAL SQ SCH ×2 (12:04→17:24)
--- NOTE | 2018-05-22 12:28 | Nephrology Progress Note ---
Date of Encounter: 05/22/18 Time of Encounter: 12:28 Objective - Vital Signs Vital signs: Vital Signs Temp Pulse Resp BP Pulse Ox 05/22/18 10:42 97.5 F L 66 16 195/67 97 05/22/18 06:33 97.4 F L 62 16 205/65 98 05/22/18 04:11 97.4 F L 60 16 190/68 98 05/22/18 01:21 97.7 F 60 18 178/65 98 05/21/18 19:04 98.7 F 61 18 186/70 99 Intake and Output 05/21/18 05/22/18 05/22/18 23:59 07:59 15:59 Intake Total 1325 / 1325 0 / 0 Output Total 200 / 200 Balance 1325 / 1325 -200 / -200 Intake: IV Fluids 1325 / 1325 0.9 % Sodium Chloride 1,000 ML 1000 / 1000 @ 999 mls/hr IVC .Q1H1M ONE Rx# :[id number] D5% And 0.9% Nacl 1000 Ml 1,000 325 / 325 ML @ 75 mls/hr IVC .[id number] MP Rx#:[id number] Oral 0 / 0 Output: Urine 200 / 200 Other: Meal NPO Percent of Meal Consumed 0% # Voids 1 Weight 62.596 kg 64.9 kg Blood Glucose* 67 100 107 Patient Weight 05/22/18 23:59 Weight 64.9 kg - Lab 05/22/18 03:36 05/22/18 03:36 Most recent lab results Calcium 8.3 mg/dL (8.6-10.3) L 05/22/18 03:36 Magnesium 1.5 mg/dL (1.6-2.6) L 05/22/18 03:36 Consult Discharge Plan - Plan Referrals: Susan Jules [Primary Care Provider] -
[2018-05-22] MEDS: *HR* FentaNYL (PF) 100 MCG/2 ML VIAL IVP PRN ×2 (15:24→20:31)
--- NOTE | 2018-05-22 16:09 | Nephrology Consult Note ---
Date of Encounter: 05/22/18 Time of Encounter: 16:09 Assessment and Plan (1) Acute kidney injury superimposed on chronic kidney disease Current Visit: Yes Status: Acute Patient with acute kidney injury on chronic kidney disease. Her renal function seems to be improving with intravenous fluids. She has metabolic acidosis and could possibly benefit from supplemental bicarbonate. Next At the time my evaluation she does not need emergent dialysis. She does not exhibit uremic symptoms. Continue hydration. Avoid nephrotoxic agents. Adjust medications for renal function. Thank you for the consult. (2) Metabolic acidosis Current Visit: Yes Status: Acute (3) DM type 2 (diabetes mellitus, type 2) Current Visit: Yes Status: Chronic Per the primary team. Qualifiers: Diabetes mellitus snf insulin use: with snf use Diabetes mellitus complication status: with kidney complications Diabetes mellitus complication detail: with chronic kidney disease Chronic kidney disease stage: stage 4 (severe) Qualified Code(s): E11.22 - Type 2 diabetes mellitus with diabetic chronic kidney disease; N18.4 - Chronic kidney disease, stage 4 (severe); Z79.4 - halfway (current) use of insulin (4) Hypertension Current Visit: Yes Status: Chronic Titrate hypertensive medication as needed. Qualifiers: Hypertension type: essential hypertension Qualified Code(s): I10 - Essential (primary) hypertension (5) Anemia Current Visit: No Status: Chronic Qualifiers: Anemia type: unspecified type Qualified Code(s): D64.9 - Anemia, unspecified (6) Gastroenteritis Current Visit: No Status: Resolved Improving. History of Present Illness - Reason for Consult Consult date: 05/22/18 Acute Kidney Injury, Chronic Kidney Disease - Chief Complaint NETTE on CKD - History of Present Illness Ms. Singleton is a 73-year-old woman with a history of chronic kidney disease stage 4/5 who presents with not feeling well. She reports that she did have some nausea and decreased appetite. She denies a metallic taste of food. She denies diarrhea. She reports she recently had a fistula placed in anticipation for dialysis. She denies chest pain or shortness of breath. Past Med Surg Social Fam HX - Past Medical History Medical history: diabetes, hypertension, renal disease, other Additional medical history: Stage 4 Kidney Failure Psychiatric history: no psych history - Past Surgical History Surgical History: coronary bypass (CABG), hysterectomy, pacemaker/AICD Additional surgical history: Gallbadder removal , triple bypass 94 - Social History Smoking Status: Never smoker Smokeless Tobacco Status: No Alcohol use: none Drug use: none - Family History Mother Hx Family Cardiac Disorders: Yes (hypertension) Medications and Allergies Aspirin [Ecotrin] 81 mg PO DAILY 03/19/16 [History] Atorvastatin [Lipitor] 80 mg PO HS 03/19/16 [History] Biotin 1,000 mcg PO BID 03/19/16 [History] Cholecalciferol (Vitamin D3) [Vitamin D3] 1,000 unit PO 1-3XD 03/19/16 [History] Clopidogrel [Plavix] 75 mg PO DAILY 03/19/16 [History] Gabapentin 300 mg PO DAILY 03/19/16 [History] Insulin ASPART [Novolog] 0 unit SQ ACHS 03/19/16 [History] Insulin Glargine [Lantus] 20 unit SQ DAILY 03/19/16 [History] Iron 65 mg PO DAILY 03/19/16 [History] Isosorbide DInitrate [Isosorbide Dinitrate] 20 mg PO BID 03/19/16 [History] Metoprolol 100 mg PO DAILY 03/19/16 [History] Vitamin E 400 unit PO DAILY 03/19/16 [History] Furosemide [Lasix] 80 mg PO BID 05/22/18 [History] amLODIPine [Norvasc] 10 mg PO DAILY 05/22/18 [History] hydrALAZINE [HydrALAZINE] 100 mg PO Q12HR 05/22/18 [History] Allergy/AdvReac Type Severity Reaction Status Date / Time olmesartan [From Benicar] Allergy Mild Gastrointestinal Verified 03/19/16 17:04 Upset Labetalol Allergy Gastrointestinal Verified 03/19/16 17:04 Upset Review of Systems All Systems: reviewed and no additional remarkable complaints except as stated (As documented in history of present illness. Otherwise review of systems is stable.) Exam - Vital Signs Vital signs: Initial Vital Signs Temp Pulse Resp BP Pulse Ox 98.7 F 61 18 186/70 99 05/21/18 19:04 05/21/18 19:04 05/21/18 19:04 05/21/18 19:04 05/21/18 19:04 Vital Signs - Last 8 Hours Temp Pulse Resp BP Pulse Ox 05/22/18 15:10 98.0 F 62 17 198/62 97 05/22/18 10:42 97.5 F L 66 16 195/67 97 Intake and Output 05/22/18 05/22/18 05/22/18 07:59 15:59 23:59 Intake Total 1325 / 1325 240 / 240 Output Total 200 / 200 Balance 1325 / 1325 40 / 40 Intake: IV Fluids 1325 / 1325 0.9 % Sodium Chloride 1,000 ML 1000 / 1000 @ 999 mls/hr IVC .Q1H1M ONE Rx# :[id number] D5% And 0.9% Nacl 1000 Ml 1,000 325 / 325 ML @ 75 mls/hr IVC .[id number] MP Rx#:[id number] Oral 240 / 240 Output: Urine 200 / 200 Other: Meal Lunch Percent of Meal Consumed 100% # Voids 1 Weight 64.9 kg Blood Glucose* 100 107 Patient Weight 05/22/18 23:59 Weight 64.9 kg - General Appearance General appearance: well-developed, well-nourished EENT: ATNC Neck: supple Respiratory: clear Cardiology: no edema, regular rate - Dialysis Access Dialysis Vascular Access: Arteriovenous Fistula thrill: Yes bruit: Yes Gastrointestinal: no tenderness Integumentary: warm and dry Neurologic: alert and oriented x3 Musculoskeletal: no cyanosis Psychiatric: mood/affect appropriate Results - Lab Results 05/23/18 08:50 05/22/18 03:36 Most recent lab results Calcium 8.3 mg/dL (8.6-10.3) L 05/22/18 03:36 Magnesium 1.5 mg/dL (1.6-2.6) L 05/22/18 03:36 Consult Discharge Plan - Plan Referrals: Susan Jules [Primary Care Provider] -
[2018-05-22] MEDS: D5% in 0.9% NACL 1,000 ML IVC SCH (16:28)
[2018-05-22] MEDS ORDERED: *HR* Labetalol 20 MG/4 ML SYRINGE IVP ONE (20:39)
[2018-05-23] MEDS: Insulin LISPRO 300 UNITS/3 ML VIAL SQ SCH ×4 (00:22→17:12)
[2018-05-23] MEDS: hydrALAZINE 25 MG TABLET PO SCH ×3 (00:50→15:49)
[2018-05-23] MEDS: D5% in 0.9% NACL 1,000 ML IVC SCH ×2 (01:55→05:20)
[2018-05-23] MEDS: *HR* Heparin 5,000 UNIT/ML VIAL SQ SCH ×2 (05:19→17:12)
[2018-05-23] MEDS: *HR* FentaNYL (PF) 100 MCG/2 ML VIAL IVP PRN ×3 (06:48→19:50)
[2018-05-23] MEDS: amLODIPine 5 MG TABLET PO SCH (07:59)
[2018-05-23] MEDS: Pantoprazole 40 MG VIAL IVP SCH (07:59)
--- NOTE | 2018-05-23 08:23 | Electrocardiograph Report ---
[address] [place], [place] [address] Test Date: 2018-05-21 Pat Name: Aysha Singleton Department: [id number] Room: 2A16 Gender: F Bridge Crane Operator: : [id number] Requested By: Felicia Washington Order Number: [id number] Reading MD: Nicole Raygoza Measurements Intervals [place] Rate: 67 P: [place]: 172 QRS: -35 QRSD: 158 T: 104 QT: 474 QTc: 501 Interpretive Statements Atrial-paced complexes Right bundle branch block Electronically Signed On 05-23-2018 8:21:39 EDT by Nicole Raygoza
[2018-05-23] MEDS ORDERED: Isosorbide MONOnitrate (24 HR) 30 MG TAB.ER.24H PO SCH (09:00)
[2018-05-23 09:32] LABS: Basophils % 0.7 %; Eosinophils # 0.2 K/mcL (0.0-0.6); Eosinophils % 5.2 %; Hematocrit 22.7 % (35.3-44.9); Hemoglobin 7.2 g/dL (11.5-15.4); Immature Granulocytes % 0.2 % (0-4); Lymphocytes # 0.9 K/mcL (0.6-4.6); Lymphocytes % 21.1 %; Mean Corpuscular HGB Conc 31.7 g/dL (31.6-35.5); Mean Corpuscular Hemoglobin 30.1 pg (28.0-33.3); Mean Platelet Volume 10.5 fL (9.4-12.4); Monocytes # 0.5 K/mcL (0.0-1.3); Monocytes % 11.1 %; Neutrophils # 2.6 K/mcL (1.6-8.9); Platelet Count 152 K/mcL (140-400); Red Blood Count 2.39 M/mcL (3.82-4.97); Red Cell Distribution Width 13.3 % (11.5-14.5); Segmented Neutrophils % 61.7 %
--- NOTE | 2018-05-23 09:44 | Nephrology Progress Note ---
Date of Encounter: 05/23/18 Time of Encounter: 09:44 - Assessment and Plan (1) Acute kidney injury superimposed on chronic kidney disease Current Visit: Yes Status: Acute Patient with acute kidney injury on chronic kidney disease. Her renal function seems to be improving with intravenous fluids. She has metabolic acidosis and could possibly benefit from supplemental bicarbonate. At the time my evaluation she does not need emergent dialysis. She does not exhibit uremic symptoms. Continue hydration. Avoid nephrotoxic agents. Adjust medications for renal function. . (2) Metabolic acidosis Current Visit: Yes Status: Acute (3) DM type 2 (diabetes mellitus, type 2) Current Visit: Yes Status: Chronic Qualifiers: Diabetes mellitus shelter insulin use: with shelter use Diabetes mellitus complication status: with kidney complications Diabetes mellitus complication detail: with chronic kidney disease Chronic kidney disease stage: stage 4 (severe) Qualified Code(s): E11.22 - Type 2 diabetes mellitus with diabetic chronic kidney disease; N18.4 - Chronic kidney disease, stage 4 (severe); Z79.4 - custodial (current) use of insulin (4) Hypertension Current Visit: Yes Status: Chronic Qualifiers: Hypertension type: essential hypertension Qualified Code(s): I10 - Essential (primary) hypertension (5) Anemia Current Visit: No Status: Chronic Qualifiers: Anemia type: unspecified type Qualified Code(s): D64.9 - Anemia, unspecified Subjective Principal diagnosis: NETTE on CKD Interval history: Patient seen. She is asleep. Labs not available at the time patient was seen. Objective - Vital Signs Vital signs: Vital Signs Temp Pulse Resp BP Pulse Ox 05/23/18 08:00 96 05/23/18 06:35 98.0 F 64 16 199/64 96 05/23/18 04:14 98.1 F 66 17 160/58 96 05/22/18 23:47 99.3 F 61 17 165/56 95 05/22/18 18:56 98.6 F 62 17 187/65 96 05/22/18 15:10 98.0 F 62 17 198/62 97 05/22/18 10:42 97.5 F L 66 16 195/67 97 Intake and Output 05/22/18 05/23/18 05/23/18 23:59 07:59 15:59 Intake Total 240 / 240 1000 / 1000 30 / 30 Output Total 0 / 0 200 / 200 200 / 200 Balance 240 / 240 800 / 800 -170 / -170 Intake: IV Fluids 1000 / 1000 D5% And 0.9% Nacl 1000 Ml 1,000 1000 / 1000 ML @ 75 mls/hr IVC .[id number] MP Rx#:[id number] Oral 240 / 240 0 / 0 30 / 30 Output: Urine 0 / 0 200 / 200 200 / 200 Other: Meal Dinner Breakfast Percent of Meal Consumed 100% 0% # Voids 2 1 1 Blood Glucose* 138 233 - General Appearance General appearance: Present: well-developed, well-nourished EENT: Present: ATNC Neck: Present: supple - Lab 05/23/18 08:50 05/23/18 08:50 Most recent lab results Calcium 8.3 mg/dL (8.6-10.3) L 05/22/18 03:36 Magnesium 1.5 mg/dL (1.6-2.6) L 05/22/18 03:36 Consult Discharge Plan - Plan Referrals: Susan Jules [Primary Care Provider] -
[2018-05-23 10:40] LABS: Calcium 7.5 mg/dL (8.6-10.3); Magnesium 1.4 mg/dL (1.6-2.6); Phosphorous 6.3 mg/dL (2.7-4.5)
--- NOTE | 2018-05-23 14:14 | Internal Med Progress Note ---
Hospitalist Progress Note - Encounter Date of Encounter: 05/23/18 Time of Encounter: 14:12 - Subjective Interval History: I have seen and evaluated the patient at bedside. Patient reports still having abdominal pain, aggravated by the clear liquid diet. denies shortness of breath, nausea or vomiting. - Exam Vitals: Temp Pulse Resp BP Pulse Ox 98.1 F 62 16 157/67 95 05/23/18 10:42 05/23/18 10:42 05/23/18 10:42 05/23/18 10:42 05/23/18 10:42 Exam: Physical exam Vitals: Reviewed. General: Alert and oriented 4. still in mild distress due to abdominal pain Cardiovascular: RRR, normal S1 & S2, no rubs, murmurs or gallops. Lungs: Clear to auscultation bilaterally, no wheezes or crackles. Abdomen: Soft, mild generalized tenderness to deep palpation, more significant LLQ. no rigidity. Extremities: 2+ edema in the lower extremity bilaterally Neurological: Normal cognition Rest of the physical exam is non contributory - Assessment and Plan (1) Pancreatitis Current Visit: Yes Status: Acute Assessment and Plan: patient reports persistent abdominal pain Plan bowel rest. place patient NPO except for medications continue PPIs and anti-emetics IV hydration withh D5%/NS @75mls/hr GI consulted. on fentanyl 25 mcg/IV Q3HR PRN for pain control (2) Acute kidney injury superimposed on chronic kidney disease Current Visit: Yes Status: Acute Assessment and Plan: no improvement with IV hydration, likely this is patient's baseline. will continue IV fluid and re-assess kidney function in the morning nephro-protective strategies (3) CAD (coronary artery disease) Current Visit: Yes Status: Acute Assessment and Plan: will resume dual anti-platelet therapy tomorrow morning. (4) Pancreatic mass Current Visit: Yes Status: Acute Assessment and Plan: CT abd/pelvis Pancreas: Peripancreatic inflammatory stranding mainly along the pancreatic body and tail. No drainable fluid collection. Hypodensity along the mid body, suspicious for an IPMN. No significant duct dilatation (5) Renal mass Current Visit: Yes Status: Acute Assessment and Plan: CT scan which reveals a possible solid 3 cm renal mass in the left kidney. patient wants to continue work up as outpatient. (6) DM type 2 (diabetes mellitus, type 2) Current Visit: Yes Status: Chronic Assessment and Plan: patient NPO on D%NS for maintenance fluids. accu-checks Q6HRs. continue low dose sliding scale Q6HRs. (7) Hypertension Current Visit: Yes Status: Chronic Assessment and Plan: BP better controlled. re-started on isosorbide 60mg/PO daily and hydralazine 50mg/PO TID amlodipine increase 10mg/PO daily. (8) Anemia Current Visit: No Status: Chronic Assessment and Plan: possible due to CKD. iron profile ordered will monitor and transfuse per protocol DVT Prophylaxis: On heparin subQ - Summary of Assessment and Plan Summary of Assessment and Plan: Patient to remain in the hospital due to pancreatitis. NPO, still referring abdominal pain. - Time Spent with Patient Total time spent is greater than 50% in coordination of care (as documented) at patient's floor/unit and/or counseling patient: Greater than 35 minutes (40) Plan of Care Discussed with: patient (and the nurse.) Internal Medicine: Result - Labs CBC & Chem 7: 05/23/18 08:50 05/23/18 08:50 Labs: Short CBC 05/23/18 Range/Units 08:50 WBC 4.2 L (4.3-11.1) K/mcL Hgb 7.2 L (11.5-15.4) g/dL Hct 22.7 L (35.3-44.9) % Plt Count 152 (140-400) K/mcL Neutrophils # 2.6 (1.6-8.9) K/mcL BMP 05/23/18 08:50 Sodium 143 Potassium 4.0 Chloride 115 H Carbon Dioxide 15 L BUN 75 H Creatinine 4.97 H Glucose 67 L Calcium 7.5 L - ABG Interpretation ABG results: PT/INR, D-dimer PT 12.6 Seconds (9.4-12.1) H 05/22/18 03:36 Consult Discharge Plan - Plan Referrals: Susan Jules [Primary Care Provider] - (1) Pancreatitis Qualifiers: Chronicity: acute Pancreatitis type: other Acute pancreatitis complication: unspecified Qualified Code(s): K85.80 - Other acute pancreatitis without necrosis or infection (3) CAD (coronary artery disease) Qualifiers: Coronary Disease-Associated Artery/Lesion type: bypass graft [place] vs. transplanted heart: [place] heart Associated angina: angina presence unspecified Qualified Code(s): I25.810 - Atherosclerosis of coronary artery bypass graft(s) without angina pectoris (6) DM type 2 (diabetes mellitus, type 2) Qualifiers: Diabetes mellitus middle or intermediate school principal insulin use: with alf use Diabetes mellitus complication status: with kidney complications Diabetes mellitus complication detail: with chronic kidney disease Chronic kidney disease stage: stage 4 (severe) Qualified Code(s): E11.22 - Type 2 diabetes mellitus with diabetic chronic kidney disease; N18.4 - Chronic kidney disease, stage 4 (severe); Z79.4 - half-way (current) use of insulin (7) Hypertension Qualifiers: Hypertension type: essential hypertension Qualified Code(s): I10 - Essential (primary) hypertension (8) Anemia Qualifiers: Anemia type: unspecified type Qualified Code(s): D64.9 - Anemia, unspecified
[2018-05-23] MEDS: Sodium Bicarbonate 75 MEQ in D5% in 0.45% NACL 1,000 ML IVC SCH (15:49)
[2018-05-24] MEDS: Insulin LISPRO 300 UNITS/3 ML VIAL SQ SCH ×4 (00:49→17:05)
[2018-05-24] MEDS: hydrALAZINE 25 MG TABLET PO SCH ×3 (00:50→16:53)
[2018-05-24 01:01] LABS: Basophils % 0.7 %; Eosinophils # 0.3 K/mcL (0.0-0.6); Eosinophils % 6.4 %; Hematocrit 23.4 % (35.3-44.9); Hemoglobin 7.3 g/dL (11.5-15.4); Lymphocytes # 0.8 K/mcL (0.6-4.6); Lymphocytes % 20.4 %; Mean Corpuscular HGB Conc 31.2 g/dL (31.6-35.5); Mean Corpuscular Hemoglobin 29.2 pg (28.0-33.3); Mean Corpuscular Volume 93.6 fL (83.0-100.0); Mean Platelet Volume 10.1 fL (9.4-12.4); Monocytes # 0.4 K/mcL (0.0-1.3); Monocytes % 9.1 %; Neutrophils # 2.6 K/mcL (1.6-8.9); Platelet Count 168 K/mcL (140-400); Red Cell Distribution Width 13.2 % (11.5-14.5); Segmented Neutrophils % 63.4 %
[2018-05-24 01:22] LABS: Albumin 2.4 g/dL (3.5-5.7); Calcium 7.8 mg/dL (8.6-10.3); Phosphorous 6.2 mg/dL (2.7-4.5); Potassium 3.9 mEq/L (3.5-5.1)
[2018-05-24 01:46] LABS: Folate 15.3 ng/mL (3.0-16.0)
[2018-05-24] MEDS: *HR* FentaNYL (PF) 100 MCG/2 ML VIAL IVP PRN ×2 (03:32→09:23)
[2018-05-24] MEDS: Sodium Bicarbonate 75 MEQ in D5% in 0.45% NACL 1,000 ML IVC SCH (05:55)
[2018-05-24] MEDS: *HR* Heparin 5,000 UNIT/ML VIAL SQ SCH ×2 (06:07→16:53)
[2018-05-24 07:04] LABS: Protein/Creatinine Ratio,Urine 15.5 mg/mg (0.00-0.20)
[2018-05-24] MEDS: Isosorbide MONOnitrate (24 HR) 30 MG TAB.ER.24H PO SCH (09:22)
[2018-05-24] MEDS: amLODIPine 5 MG TABLET PO SCH (09:22)
[2018-05-24] MEDS: Pantoprazole 40 MG VIAL IVP SCH (09:23)
[2018-05-24] MEDS: Aspirin Enteric Coated 81 MG Tablet PO SCH (09:23)
--- NOTE | 2018-05-24 11:06 | Internal Med Progress Note ---
Hospitalist Progress Note - Encounter Date of Encounter: 05/24/18 Time of Encounter: 11:05 - Subjective Interval History: I have seen and evaluated the patient at bedside. Patient reports 6 out of 10 epigastric abdominal pain radiating to her day for upper quadrant and her back. Denies nausea, vomiting or shortness of breath. Reports passing flatus - Exam Vitals: Temp Pulse Resp BP Pulse Ox 98.5 F 74 18 187/51 93 05/24/18 06:27 05/24/18 06:27 05/24/18 06:27 05/24/18 06:27 05/24/18 06:27 Exam: Physical exam Vitals: Reviewed. General: Alert and oriented 4. mild distress due to abdominal pain Cardiovascular: RRR, normal S1 & S2, no rubs, murmurs or gallops. Lungs: Clear to auscultation bilaterally, no wheezes or crackles. Abdomen: Soft, mild generalized tenderness to deep palpation, more significant LLQ. no rigidity. Extremities: 2+ edema in the lower extremity bilaterally Neurological: Normal cognition Rest of the physical exam is non contributory - Assessment and Plan (1) Pancreatitis Current Visit: Yes Status: Acute Assessment and Plan: Patient: Reports persistent abdominal pain. We will repeat abdominal CT of the abdomen and pelvis for further evaluation. Continue with bowel rest, and IV hydration. GI has been consulted, recommendation appreciated. continue anti-emetics and PPI. on fentanyl 25 mcg/IV Q3HRs for pain control. (2) Acute kidney injury superimposed on chronic kidney disease Current Visit: Yes Status: Acute Assessment and Plan: Kidney function appears to be at baseline. Avoid nephrotoxic medication Nephrology recommendation appreciated. (3) CAD (coronary artery disease) Current Visit: Yes Status: Acute Assessment and Plan: Patient is on dual antiplatelet therapy with aspirin and Plavix. (4) Pancreatic mass Current Visit: Yes Status: Acute Assessment and Plan: CT abd/pelvis Pancreas: Peripancreatic inflammatory stranding mainly along the pancreatic body and tail. No drainable fluid collection. Hypodensity along the mid body, suspicious for an IPMN. No significant duct dilatation (5) Renal mass Current Visit: Yes Status: Acute Assessment and Plan: CT scan which reveals a possible solid 3 cm renal mass in the left kidney. patient wants to continue work up as outpatient. (6) DM type 2 (diabetes mellitus, type 2) Current Visit: Yes Status: Chronic Assessment and Plan: Blood sugar is well controlled. Patient is nothing by mouth on D5 sodium bicarbonate. Continue Accu-Chek every 6 hours plus lispro low dose every 6 hours. (7) Hypertension Current Visit: Yes Status: Chronic Assessment and Plan: Blood pressure suboptimally controlled. Patient is on amlodipine,, isosorbide. Increase hydralazine to 100 mg 3 times a day. We will resume metoprolol 50 mg by mouth daily. (8) Anemia Current Visit: No Status: Chronic Assessment and Plan: Most likely anemia of chronic disease. H&H stable at 7.3 and 23.4. Transfuse per protocol. DVT Prophylaxis: On heparin 5000 units subcutaneous twice a day. - Summary of Assessment and Plan Summary of Assessment and Plan: Patient to remain in the hospital due to pancreatitis with persistent abdominal pain. Nothing by mouth. - Time Spent with Patient Total time spent is greater than 50% in coordination of care (as documented) at patient's floor/unit and/or counseling patient: Greater than 35 minutes (40) Plan of Care Discussed with: patient (and the nurse.) Internal Medicine: Result - Labs CBC & Chem 7: 05/24/18 00:46 05/24/18 00:46 Labs: Short CBC 05/24/18 Range/Units 00:46 WBC 4.1 L (4.3-11.1) K/mcL Hgb 7.3 L (11.5-15.4) g/dL Hct 23.4 L (35.3-44.9) % Plt Count 168 (140-400) K/mcL Neutrophils # 2.6 (1.6-8.9) K/mcL BMP 05/24/18 00:46 Sodium 140 Potassium 3.9 Chloride 111 H Carbon Dioxide 15 L BUN 71 H Creatinine 5.05 H Glucose 125 H Calcium 7.8 L Liver Function 05/24/18 Range/Units 00:46 Albumin 2.4 L (3.5-5.7) g/dL - ABG Interpretation ABG results: PT/INR, D-dimer PT 12.6 Seconds (9.4-12.1) H 05/22/18 03:36 Consult Discharge Plan - Plan Referrals: Susan Jules [Primary Care Provider] - (1) Pancreatitis Qualifiers: Chronicity: acute Pancreatitis type: other Acute pancreatitis complication: unspecified Qualified Code(s): K85.80 - Other acute pancreatitis without necrosis or infection (3) CAD (coronary artery disease) Qualifiers: Coronary Disease-Associated Artery/Lesion type: bypass graft [place] vs. transplanted heart: [place] heart Associated angina: angina presence unspecified Qualified Code(s): I25.810 - Atherosclerosis of coronary artery bypass graft(s) without angina pectoris (6) DM type 2 (diabetes mellitus, type 2) Qualifiers: Diabetes mellitus terminal carman insulin use: with longterm use Diabetes mellitus complication status: with kidney complications Diabetes mellitus complication detail: with chronic kidney disease Chronic kidney disease stage: stage 4 (severe) Qualified Code(s): E11.22 - Type 2 diabetes mellitus with diabetic chronic kidney disease; N18.4 - Chronic kidney disease, stage 4 (severe); Z79.4 - snf (current) use of insulin (7) Hypertension Qualifiers: Hypertension type: essential hypertension Qualified Code(s): I10 - Essential (primary) hypertension (8) Anemia Qualifiers: Anemia type: unspecified type Qualified Code(s): D64.9 - Anemia, unspecified
[2018-05-24] MEDS: Metoprolol XL (24 HR) Succ 50 MG TAB.ER.24H PO SCH (11:29)
--- NOTE | 2018-05-24 11:34 | Anesthesia Evaluation PreOp ---
Date of Encounter: 05/24/18 Time of Encounter: 11:32 - Past History Planned Operation: EGD Cardiac History: HTN, Cardiac Surgery (CABG x 3 1993), Cardiac Stent, Pacemaker/ICD (not pacer dependent, interogated today), Other (Anemia) Pulmonary History: Denies Any Significant HX [employer] History: Denies Any Significant HX Other Medical History: Renal (Renal Mass Acute on Chronic Renal Disease, ESRD), Diabetes Type II, Other (Pancreatitis, Pancreatic Mass) Anesthesia History: No Prior Anesthetic Complications, Past Anesthesia ( coronary bypass (CABG), hysterectomy, pacemaker/AICD Gallbadder removal , triple bypass 94, AV fistula) : No Alcohol Use: none Drug use: none Medications and Allergies Metoprolol Succinate [Toprol Xl] 100 mg PO DAILY #0 03/19/16 [History] RX: Biotin 1,000 mcg PO BID 03/19/16 [History] RX: Cholecalciferol (Vitamin D3) [Vitamin D3] 1,000 unit PO DAILY 03/19/16 [History] RX: Clopidogrel [Plavix] 75 mg PO DAILY 03/19/16 [History] RX: Insulin Glargine [Lantus] 20 unit SQ DAILY 03/19/16 [History] RX: Iron 65 mg PO DAILY 03/19/16 [History] RX: Isosorbide DInitrate [Isosorbide Dinitrate] 20 mg PO BID 03/19/16 [History] RX: Furosemide [Lasix] 80 mg PO BID 05/22/18 [History] Amlodipine Besylate 10 mg PO DAILY 05/23/18 [History] Aspirin [Lo-Dose Aspirin EC] 81 mg PO DAILY 05/23/18 [History] Atorvastatin Calcium 80 mg PO HS 05/23/18 [History] Hydralazine HCl 100 mg PO Q12H 05/23/18 [History] Pantoprazole Sodium 40 mg PO DAILY 05/23/18 [History] RX: Gabapentin [Neurontin] 300 mg PO DAILY 05/23/18 [History] RX: Vitamin E 400 unit PO DAILY 05/23/18 [History] Allergy/AdvReac Type Severity Reaction Status Date / Time olmesartan [From Benicar] Allergy Mild Gastrointestinal Verified 05/23/18 14:20 Upset Labetalol Allergy Gastrointestinal Verified 05/23/18 14:20 Upset - Meds/Allergy Pre-op Review Medications Reviewed: Yes Allergies Reviewed: Yes Beta Blockers on Current Med List: Yes If Beta Blockers taken, Date/Time (Last Dose taken): 11:48 today Anesthesia Results - Labs 05/24/18 00:46 05/24/18 00:46 - Imaging EKG: report reviewed (Atrial-paced complexes Right bundle branch block) Additional studies: PFT INTERPRETATION: Adequate for Interpretation Spirometry shows moderate airway restrictive disease. No response to inhaled bronchodilators is seen MVV is decreased. Lung Volumes TLC is moderately reduced. Diffusion Capacity is moderately reduced. Flow Volume Loop: Restrictive. Anesthesia Exam O2 Sat Weight 64 kg O2 Sat by Pulse Oximetry 92 O2 Sat by Pulse Oximetry 93 O2 Sat by Pulse Oximetry 92 O2 Sat by Pulse Oximetry 95 O2 Sat by Pulse Oximetry 94 O2 Sat by Pulse Oximetry 94 Vital Signs Temp Pulse Resp BP Pulse Ox 98.7 F 61 18 186/70 99 05/21/18 19:04 05/21/18 19:04 05/21/18 19:04 05/21/18 19:04 05/21/18 19:04 NPO (# of Hours): > 8 hrs Pain Scale: 0 Pain Scale Used: Numeric (1 - 10) - HEENT Pupil (Motor): Pupils equal, EOMI Mallampati: III Teeth: Edentulous Oral Opening: Greater than 3 - [employer] LOC: Oriented [employer] Motor: Normal RUE, Normal LUE, Normal RLE, Normal LLE, Normal Face [employer] Sensory: Normal: RUE, LUE, RLE, LLE, Face - Cardiac Rhythm: Regular Murmur: None JVD: No Carotid Bruit: No - Pulmonary Breath Sounds: bilateral Clear Respiratory Effort: Symmetrical Anesthesia Assess/Plan ASA Score: 4 Level of consciousness: Cooperative Anesthetic Plan: MAC Autologous Blood: Yes Monitoring Plan: Standard Monitors Recovery Plan: PACU
--- NOTE | 2018-05-24 11:34 | Gastroenterology Consult Note ---
Date of Encounter: 05/24/18 Time of Encounter: 09:40 - Assessment and plan (1) Pancreatitis Current Visit: Yes Status: Acute Assessment and plan: CT A/P showed acute interstitial edematous pancreatitis, no fluid collection, 8 mm focus in the pancreas body likely IPMN. Lipase 803 on admission, improving. Check if pacemaker is MRI compatible and complete MRCP if able. Continue IV fluids, antibiotics, pain control. Check IgG4, ionized calcium, triglycerides, and BRIAN. Qualifiers: Chronicity: acute Pancreatitis type: other Acute pancreatitis complication: unspecified Qualified Code(s): K85.80 - Other acute pancreatitis without necrosis or infection (2) Pancreatic mass Current Visit: Yes Status: Acute Assessment and plan: CT with possible IPMN. Check if pacemaker is MRI compatible and complete MRCP if able. (3) Anemia Current Visit: No Status: Chronic Assessment and plan: Hgb 7.3. Continue to monitor CBC and transfuse PRBC as needed. Plan for EGD today to r/o esophagitis, gastritis, duodenitis, PUD, MW tear, or A VM. Qualifiers: Anemia type: unspecified type Qualified Code(s): D64.9 - Anemia, unspecified - Time Spent With Patient Total time spent is greater than 50% in coordination of care (as documented) at patient's floor/unit and/or counseling patient: GI History of Present Illness - Data of Consult Patient: new to practice Consult date: 05/24/18 Requesting Physician: Jean Paul Swan MD - Consult Narrative Reason for consult: Acute pancreatitis, Possible IPMN History of present illness: Ms. Singleton is a 73 year old female with PMHx of DM, HTN, ESRD, CAD s/p pacemaker, CABG with stents who presented to the ED with 3 days of epigastric abdomianl pain. CT A/P showed acute interstitial edematous pancreatitis, no fluid collection, 8 mm focus in the pancreas body likely IPMN. She states she is unable to have MRI due to pacemaker. She denies fever, chills, chest pain, nausea, vomiting, diarrhea, constipation, melena, or hematochezia. Patient states she has been under "a lot of stress" with recent of her 3 week old grandson. Procedures: EGD 4 years ago at [facility], per patient report. NSAIDs: ASA Anticoagulation: Plavix Past Med Surg Social Fam HX - Past Medical History Medical history: diabetes, hypertension, renal disease, other Additional medical history: Stage 4 Kidney Failure Psychiatric history: no psych history - Past Surgical History Surgical History: coronary bypass (CABG), hysterectomy, pacemaker/AICD Additional surgical history: Gallbadder removal , triple bypass 94 - Social History Smoking Status: Never smoker Smokeless Tobacco Status: No Alcohol use: none Drug use: none - Family History Mother Hx Family Cardiac Disorders: Yes (hypertension) - Gastrointestinal Gastrointestinal: Present: as per HPI - Constitutional Constitutional: as per HPI - EENT Eyes: as per HPI Ears: Present: as per HPI Nose, mouth and throat: Present: as per HPI - Cardiovascular Cardiovascular ROS: Present: as per HPI - Respiratory Respiratory IM: Present: as per HPI - Genitourinary Genitourinary: Absent: change in color, Urinary frequency - Neurological ROS Neurological GI: Present: as per HPI - Hematologic/Lymphatic Hematologic/Lymphatic pediatric: Present: as per HPI - Musculoskeletal Musculoskeletal ROS GI: Present: as per HPI - Integumentary Integumentary GI: Present: as per HPI - Psychiatric ROS Psychiatric GI: Present: as per HPI - Endocrine Endocrine IM: Present: as per HPI - Constitutional Vitals: Temp Pulse Resp BP Pulse Ox 98.2 F 84 18 186/61 92 05/24/18 11:05 05/24/18 11:05 05/24/18 11:05 05/24/18 11:05 05/24/18 11:05 General appearance: Present: cooperative, A&O X 3, no acute distress, answers questions appropriately - Head Head exam: Present: atraumatic, normocephalic - Eye Eye exam: Present: normal appearance, sclera anicteric - ENT ENT exam: Present: mucous membranes dry - Neck Neck exam general surgery: Present: normal inspection, trachea midline - Respiratory Respiratory exam: Present: CTAB. Absent: rales, rhonchi - Cardiovascular Cardiovascular exam: Present: RRR, +S1, +S2 - GI/Abdominal GI/Abdominal exam: Present: soft, tenderness (epigastric), no peritoneal signs. Absent: distended, firm, guarding - Rectal Rectal exam: Present: deferred - Extremities Exam Extremities exam: Present: warm - Neurological Exam Neurological exam: Present: no focal deficits - Psychiatric Psychiatric exam: Present: normal affect, normal mood - Skin Skin exam: Present: dry, intact, normal color, warm Results - Labs CBC & Chem 7: 05/24/18 00:46 04 00:46 Labs: Last Result Calcium 7.8 mg/dL (8.6-10.3) L 05/24/18 00:46 Iron 41 mcg/dL (50-170) L 05/24/18 00:46 % Saturation 23 % (15-50) 05/24/18 00:46 Transferrin 130 mg/dL (203-362) L 05/24/18 00:46 Ferritin 504 ng/mL (10-120) H 05/24/18 00:46 Vitamin B12 595 pg/mL (250-1100) 05/24/18 00:46 Folate 15.3 ng/mL (3.0-16.0) 05/24/18 00:46 Entire Visit Hgb 7.3 g/dL (11.5-15.4) L 05/24/18 00:46 Hct 23.4 % (35.3-44.9) L 05/24/18 00:46 PT 12.6 Seconds (9.4-12.1) H 05/22/18 03:36 Ferritin 504 ng/mL (10-120) H 05/24/18 00:46 Total Bilirubin 0.2 mg/dL (0.3-1.0) L 05/22/18 03:36 AST 29 Units/L (13-39) 05/22/18 03:36 ALT 20 Units/L (7-52) 05/22/18 03:36 Amylase 238 Units/L (29-103) H 05/22/18 03:36 Lipase 558 Units/L (11-82) H 05/22/18 03:36 Folate 15.3 ng/mL (3.0-16.0) 05/24/18 00:46 - ABG ABG results: PT/INR, D-dimer PT 12.6 Seconds (9.4-12.1) H 05/22/18 03:36 Consult Discharge Plan - Plan Referrals: Susan Jules [Primary Care Provider] -
--- NOTE | 2018-05-24 11:44 | Nephrology Progress Note ---
Date of Encounter: 05/24/18 Time of Encounter: 11:43 - Assessment and Plan (1) Acute kidney injury superimposed on chronic kidney disease Current Visit: Yes Status: Acute Patient with acute kidney injury on chronic kidney disease. Her renal function seems to be stable with intravenous fluids. She has metabolic acidosis and is benefitting from supplemental bicarbonate. At the time my evaluation she does not need emergent dialysis. She does not ex hibit uremic symptoms. Continue hydration. Avoid nephrotoxic agents. Adjust medications for renal function. . (2) Metabolic acidosis Current Visit: Yes Status: Acute (3) DM type 2 (diabetes mellitus, type 2) Current Visit: Yes Status: Chronic Qualifiers: Diabetes mellitus middle or intermediate school principal insulin use: with middle or intermediate school principal use Diabetes mellitus complication status: with kidney complications Diabetes mellitus complication detail: with chronic kidney disease Chronic kidney disease stage: stage 4 (severe) Qualified Code(s): E11.22 - Type 2 diabetes mellitus with diabetic chronic kidney disease; N18.4 - Chronic kidney disease, stage 4 (severe); Z79.4 - shelter (current) use of insulin (4) Hypertension Current Visit: Yes Status: Chronic Qualifiers: Hypertension type: essential hypertension Qualified Code(s): I10 - Essential (primary) hypertension (5) Anemia Current Visit: No Status: Chronic Qualifiers: Anemia type: unspecified type Qualified Code(s): D64.9 - Anemia, unspecified Subjective Principal diagnosis: NETTE on CKD Interval history: Patient seen. She has no new complaint. She continues to have left upper quadrant discomfort. Awaiting endoscopy today. Objective - Vital Signs Vital signs: Vital Signs Temp Pulse Resp BP Pulse Ox 05/24/18 11:05 98.2 F 84 18 186/61 92 05/24/18 06:27 98.5 F 74 18 187/51 93 05/24/18 03:54 98.2 F 70 17 174/52 92 05/24/18 00:22 98.1 F 69 17 183/64 95 05/23/18 18:53 98.0 F 78 17 166/51 94 05/23/18 15:34 98.8 F 62 20 176/63 94 Intake and Output 05/23/18 05/24/18 05/24/18 23:59 07:59 15:59 Intake Total 0 / 0 1075 / 1075 Output Total 0 / 0 650 / 650 300 / 300 Balance 0 / 0 425 / 425 -300 / -300 Intake: IV Fluids 1075 / 1075 Sodium Bicarbonate 75 MEQ In D5 1075 / 1075 % And 0.45% Nacl 1000 Ml Bag 1, 000 ML @ 75 mls/hr IVC .[id number] [facility] Rx#:[id number] Oral 0 / 0 0 / 0 Output: Urine 0 / 0 650 / 650 300 / 300 Other: Weight 64 kg Blood Glucose* 134 127 150 Patient Weight 05/24/18 23:59 Weight 64 kg - General Appearance General appearance: Present: well-developed, well-nourished EENT: Present: ATNC Respiratory: Present: clear Cardiology: Present: edema, regular rate Integumentary: Present: warm and dry Neurologic: Present: alert and oriented x3 Psychiatric: Present: mood/affect appropriate - Lab 05/24/18 00:46 05/24/18 00:46 Most recent lab results Calcium 7.8 mg/dL (8.6-10.3) L 05/24/18 00:46 Phosphorus 6.2 mg/dL (2.7-4.5) H 05/24/18 00:46 Magnesium 1.8 mg/dL (1.6-2.6) 05/24/18 00:46 Urine Creatinine 64 mg/dL 05/24/18 06:05 Urine Total Protein 992 mg/dL (1-14) H 05/24/18 06:05 Consult Discharge Plan - Plan Referrals: Susan Jules [Primary Care Provider] -
[2018-05-24] MEDS ORDERED: Lidocaine -MPF 2% 2 ML VIAL ONE (12:56)
[2018-05-24] MEDS ORDERED: *HR* Propofol 200 MG/20 ML VIAL IVP ONE (12:56)
--- NOTE | 2018-05-24 16:10 | Anesthesia Evaluation Post Op ---
Date of Encounter: 05/24/18 Time of Encounter: 13:59 - Vital Signs Vital Signs: BP 164/63, Hr 90, Sat 100% on RA, RR 16 - Lungs Lungs: Clear Ascult./Percussion - Airway Airway: Non-obstructed - Cardiovascular Regular Rate - Mental Status Mental Status: Alert & Oriented, Answers Appropriately - Pain Pain Scale: 0 Pain Scale used: Numeric (1 - 10) - Nausea Vomiting Nausea Vomiting: Not Present - Hydration Hydration: NPO - Discharge PostOp Status: Transfer Patient to floor
[2018-05-25] MEDS: hydrALAZINE 25 MG TABLET PO SCH ×4 (00:22→20:53)
[2018-05-25] MEDS: Insulin LISPRO 300 UNITS/3 ML VIAL SQ SCH ×5 (00:25→20:52)
[2018-05-25 02:03] LABS: Hematocrit 22.2 % (35.3-44.9); Hemoglobin 6.9 g/dL (11.5-15.4); Mean Corpuscular HGB Conc 31.1 g/dL (31.6-35.5); Mean Corpuscular Hemoglobin 29.9 pg (28.0-33.3); Mean Corpuscular Volume 96.1 fL (83.0-100.0); Mean Platelet Volume 10.5 fL (9.4-12.4); Platelet Count 153 K/mcL (140-400); Red Blood Count 2.31 M/mcL (3.82-4.97); Red Cell Distribution Width 13.2 % (11.5-14.5)
[2018-05-25 02:21] LABS: Calcium 7.7 mg/dL (8.6-10.3); Potassium 3.7 mEq/L (3.5-5.1)
[2018-05-25] MEDS: Ondansetron 4 MG/2 ML VIAL IVP PRN ×2 (02:29→10:25)
[2018-05-25] MEDS: *HR* Heparin 5,000 UNIT/ML VIAL SQ SCH ×2 (05:49→16:45)
[2018-05-25] MEDS: Metoprolol XL (24 HR) Succ 50 MG TAB.ER.24H PO SCH (08:09)
[2018-05-25] MEDS: Aspirin Enteric Coated 81 MG Tablet PO SCH (08:09)
[2018-05-25] MEDS: Pantoprazole 40 MG VIAL IVP SCH (08:09)
[2018-05-25] MEDS: amLODIPine 5 MG TABLET PO SCH (08:09)
[2018-05-25] MEDS: Isosorbide MONOnitrate (24 HR) 30 MG TAB.ER.24H PO SCH (08:09)
[2018-05-25] MEDS ORDERED: 0.9 % Sodium Chloride 250 ML ONE (10:07)
--- NOTE | 2018-05-25 11:29 | Internal Med Progress Note ---
Hospitalist Progress Note - Encounter Date of Encounter: 05/25/18 Time of Encounter: 11:27 - Subjective Interval History: I have seen and evaluated the patient at bedside. Patient reports the abdominal pain has resolved. she denies nausea, vomiting. denies chest pain or shortness of breath. - Exam Vitals: Temp Pulse Resp BP Pulse Ox 98.6 F 80 16 176/61 93 05/25/18 11:07 05/25/18 11:07 05/25/18 11:07 05/25/18 11:07 05/25/18 11:07 Exam: Physical exam Vitals: Reviewed. General: Alert and oriented 4. No distress Cardiovascular: RRR, normal S1 & S2, no rubs, murmurs or gallops. Lungs: Clear to auscultation bilaterally, no wheezes or crackles. Abdomen: Soft, no tenderness, no rigidity. 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 Extremities: 2+ edema in the lower extremity bilaterally Neurological: Normal cognition Rest of the physical exam is non contributory - Assessment and Plan (1) Pancreatitis Current Visit: Yes Status: Resolved Assessment and Plan: reports the pain has resolved, denies nausea or vomiting. will advance diet to full liquid continue with PPI and anti-emetics EGD: Unremarkable. Gi recommendations appreciated IV fluids discontinued, will encourage PO intake on fentanyl 25 mcg/IV Q3HRs PRN for pain control (2) Acute kidney injury superimposed on chronic kidney disease Current Visit: Yes Status: Acute Assessment and Plan: Kidney function appears to be at baseline. Avoid nephrotoxic medication Nephrology recommendation appreciated sodium bicarb, goal serum bicarb >25 (3) CAD (coronary artery disease) Current Visit: Yes Status: Acute Assessment and Plan: Continue dual antiplatelet therapy with aspirin and Plavix. (4) Pancreatic mass Current Visit: Yes Status: Acute Assessment and Plan: CT abd/pelvis Pancreas: Peripancreatic inflammatory stranding mainly along the pancreatic body and tail. No drainable fluid collection. Hypodensity along the mid body, suspicious for an IPMN. No significant duct dilatation (5) Renal mass Current Visit: Yes Status: Acute Assessment and Plan: CT scan which reveals a possible solid 3 cm renal mass in the left kidney. patient wants to continue work up as outpatient. (6) DM type 2 (diabetes mellitus, type 2) Current Visit: Yes Status: Chronic Assessment and Plan: Blood sugar is well controlled. Accu-Chek every AC/HS lispro low dose AC (7) Hypertension Current Visit: Yes Status: Chronic Assessment and Plan: Blood pressure suboptimally controlled. Patient is on amlodipine, isosorbide. and hydralazine increase metoprolol to 100mg/PO daily on hydralzine 5mg/IV Q6HR PRN for SBP >190. (8) Anemia Current Visit: No Status: Chronic Assessment and Plan: Most likely anemia of chronic disease. will transfuse one unit of PRBCs CBC 1 hour post transfusion DVT Prophylaxis: On heparin 5000 units subcutaneous twice a day. - Summary of Assessment and Plan Summary of Assessment and Plan: patient to remain in the hospital due to resolving pancreatitis. will advance diet. potential discharge tomorrow - Time Spent with Patient Total time spent is greater than 50% in coordination of care (as documented) at patient's floor/unit and/or counseling patient: Greater than 35 minutes (40) Plan of Care Discussed with: patient (her and the nurse.) Internal Medicine: Result - Labs CBC & Chem 7: 05/25/18 01:29 05/25/18 01:29 Labs: Short CBC 05/25/18 Range/Units 01:29 WBC 3.7 L (4.3-11.1) K/mcL Hgb 6.9 L (11.5-15.4) g/dL Hct 22.2 L (35.3-44.9) % Plt Count 153 (140-400) K/mcL BMP 05/25/18 01:29 Sodium 141 Potassium 3.7 Chloride 114 H Carbon Dioxide 20 L BUN 70 H Creatinine 5.00 H Glucose 111 H Calcium 7.7 L - ABG Interpretation ABG results: PT/INR, D-dimer PT 12.6 Seconds (9.4-12.1) H 05/22/18 03:36 - Impressions Impressions Abdomen/Pelvis CT 05/24/18 12:15 IMPRESSION: 1. Cirrhosis with interval development of [id number] ascites. 2. Stable 6 mm pancreatic cystic lesion likely representing a small IPMN. 3. No change minimal peripancreatic inflammation. 4. Progressing bilateral pleural effusions with lower lobe atelectasis or infiltrate. 5. Indeterminate right colon wall thickening may relate to under distention although colitis is not excluded. 6. Underdistended stomach with gastric wall thickening. Correlate clinical evidence to suggest gastritis. 7. Solid left renal mass highly concerning for renal cell carcinoma. D/ / 05/24/2018 13:25:23 Ellis Cronin MD / [place] Interpreting Provider: Ellis Cronin MD Consult Discharge Plan - Plan Referrals: Susan Jules [Primary Care Provider] - (1) Pancreatitis Qualifiers: Chronicity: acute Pancreatitis type: other Acute pancreatitis complication: unspecified Qualified Code(s): K85.80 - Other acute pancreatitis without necrosis or infection (3) CAD (coronary artery disease) Qualifiers: Coronary Disease-Associated Artery/Lesion type: bypass graft [place] vs. transplanted heart: [place] heart Associated angina: angina presence unspecified Qualified Code(s): I25.810 - Atherosclerosis of coronary artery bypass graft(s) without angina pectoris (6) DM type 2 (diabetes mellitus, type 2) Qualifiers: Diabetes mellitus fci insulin use: with audio narrator use Diabetes mellitus complication status: with kidney complications Diabetes mellitus complication detail: with chronic kidney disease Chronic kidney disease stage: stage 4 (severe) Qualified Code(s): E11.22 - Type 2 diabetes mellitus with diabetic chronic kidney disease; N18.4 - Chronic kidney disease, stage 4 (severe); Z79.4 - [facility] (current) use of insulin (7) Hypertension Qualifiers: Hypertension type: essential hypertension Qualified Code(s): I10 - Essential (primary) hypertension (8) Anemia Qualifiers: Anemia type: unspecified type Qualified Code(s): D64.9 - Anemia, unspecified
--- NOTE | 2018-05-25 15:52 | Nephrology Progress Note ---
Date of Encounter: 05/25/18 Time of Encounter: 15:52 - Assessment and Plan (1) Acute kidney injury superimposed on chronic kidney disease Current Visit: Yes Status: Acute Patient with acute kidney injury on chronic kidney disease. Her renal function seems to be stable with intravenous fluids. She has metabolic acidosis and is benefitting from supplemental bicarbonate. At the time my evaluation she does not need emergent dialysis. She does not ex hibit uremic symptoms. Continue hydration. Avoid nephrotoxic agents. Adjust medications for renal function. Ok for discharge from a renal standpoint. She will need to follow-up with her primary clip loading machine adjuster Dr. Singleton 2-4 weeks after discharge. She should have a renal function panel drawn 7-10 days after discharge. . (2) Metabolic acidosis Current Visit: Yes Status: Acute (3) DM type 2 (diabetes mellitus, type 2) Current Visit: Yes Status: Chronic Qualifiers: Diabetes mellitus termite treater helper insulin use: with termite treater helper use Diabetes mellitus complication status: with kidney complications Diabetes mellitus complication detail: with chronic kidney disease Chronic kidney disease stage: stage 4 (severe) Qualified Code(s): E11.22 - Type 2 diabetes mellitus with diabetic chronic kidney disease; N18.4 - Chronic kidney disease, stage 4 (severe); Z79.4 - [facility] (current) use of insulin (4) Hypertension Current Visit: Yes Status: Chronic Qualifiers: Hypertension type: essential hypertension Qualified Code(s): I10 - Essential (primary) hypertension (5) Anemia Current Visit: No Status: Chronic Qualifiers: Anemia type: unspecified type Qualified Code(s): D64.9 - Anemia, unspecified Subjective Principal diagnosis: NETTE on CKD Interval history: Patient seen. She has no new complaint. She denies nausea, vomiting, or altered taste. The remainder of her review of systems either negative or stable. Objective - Vital Signs Vital signs: Vital Signs Temp Pulse Resp BP Pulse Ox 05/25/18 15:25 97.9 F 78 18 196/67 96 05/25/18 14:18 98.8 F 64 20 165/59 96 05/25/18 11:07 98.6 F 80 16 176/61 93 05/25/18 10:52 98.7 F 74 18 180/49 94 05/25/18 08:17 91 05/25/18 06:20 98.5 F 81 18 178/51 91 05/25/18 03:20 98.2 F 86 17 189/60 93 05/24/18 23:13 98.4 F 76 16 178/66 97 05/24/18 18:34 98 F 77 16 182/52 95 05/24/18 17:01 98.2 F 80 14 189/69 98 05/24/18 16:38 80 179/62 94 Intake and Output 05/24/18 05/25/18 05/25/18 23:59 07:59 15:59 Intake Total 700 / 700 Output Total 400 / 400 Balance 300 / 300 Intake: Oral 350 / 350 Blood Product 350 / 350 Rbcs Leuko Poor As-1 Unit 350 / 350 [id number] Output: Urine 400 / 400 Other: Stool Size Moderate Stool Consistency liquid Stool Color Brown # Bowel Movements 1 Weight 64 kg Blood Glucose* 133 102 161 - General Appearance General appearance: Present: well-developed, well-nourished EENT: Present: ATNC Neck: Present: supple Cardiology: Present: regular rate Integumentary: Present: warm and dry Neurologic: Present: alert and oriented x3 Psychiatric: Present: mood/affect appropriate - Lab 05/25/18 01:29 05/25/18 01:29 Most recent lab results Calcium 7.7 mg/dL (8.6-10.3) L 05/25/18 01:29 Phosphorus 6.2 mg/dL (2.7-4.5) H 05/24/18 00:46 Magnesium 1.8 mg/dL (1.6-2.6) 05/24/18 00:46 Urine Creatinine 64 mg/dL 05/24/18 06:05 Urine Total Protein 992 mg/dL (1-14) H 05/24/18 06:05 Consult Discharge Plan - Plan Referrals: Susan Jules [Primary Care Provider] -
[2018-05-26] MEDS: Ondansetron 4 MG/2 ML VIAL IVP PRN (00:30)
[2018-05-26 01:42] LABS: Basophils % 0.9 %; Eosinophils # 0.3 K/mcL (0.0-0.6); Eosinophils % 5.5 %; Hematocrit 26.2 % (35.3-44.9); Hemoglobin 8.3 g/dL (11.5-15.4); Immature Granulocytes % 0.2 % (0-4); Lymphocytes # 0.8 K/mcL (0.6-4.6); Lymphocytes % 17.2 %; Mean Corpuscular HGB Conc 31.7 g/dL (31.6-35.5); Mean Corpuscular Volume 91.6 fL (83.0-100.0); Mean Platelet Volume 10.6 fL (9.4-12.4); Monocytes # 0.4 K/mcL (0.0-1.3); Monocytes % 9.5 %; Platelet Count 163 K/mcL (140-400); Red Blood Count 2.86 M/mcL (3.82-4.97); Red Cell Distribution Width 16.2 % (11.5-14.5); Segmented Neutrophils % 66.7 %
[2018-05-26 02:22] LABS: Magnesium 1.6 mg/dL (1.6-2.6); Phosphorous 5.6 mg/dL (2.7-4.5)
[2018-05-26 02:27] LABS: Calcium 7.7 mg/dL (8.6-10.3)
[2018-05-26] MEDS: *HR* Heparin 5,000 UNIT/ML VIAL SQ SCH ×2 (05:59→17:04)
[2018-05-26] MEDS: Insulin LISPRO 300 UNITS/3 ML VIAL SQ SCH ×4 (07:42→21:39)
[2018-05-26] MEDS: D5% in 0.9% NACL 1,000 ML IVC SCH (07:45)
[2018-05-26] MEDS: amLODIPine 5 MG TABLET PO SCH (08:56)
[2018-05-26] MEDS: Metoprolol XL (24 HR) Succ 50 MG TAB.ER.24H PO SCH (08:57)
[2018-05-26] MEDS: Aspirin Enteric Coated 81 MG Tablet PO SCH (08:57)
[2018-05-26] MEDS: Pantoprazole 40 MG VIAL IVP SCH (08:57)
[2018-05-26] MEDS: Isosorbide MONOnitrate (24 HR) 30 MG TAB.ER.24H PO SCH (08:57)
[2018-05-26] MEDS: hydrALAZINE 25 MG TABLET PO SCH ×3 (08:57→21:43)
--- NOTE | 2018-05-26 13:03 | Internal Med Progress Note ---
Hospitalist Progress Note - Encounter Date of Encounter: 05/26/18 Time of Encounter: 09:00 - Subjective Interval History: Patient is still has mild abdominal pain. Denies nausea or vomiting. No fever. - Exam Vitals: Temp Pulse Resp BP Pulse Ox 98.7 F 83 16 204/66 93 05/26/18 10:33 05/26/18 10:33 05/26/18 10:33 05/26/18 10:33 05/26/18 10:33 Exam: Physical exam Vitals: Reviewed. General: Alert and oriented 4. No distress Cardiovascular: RRR, normal S1 & S2, no rubs, murmurs or gallops. Lungs: Clear to auscultation bilaterally, no wheezes or crackles. Abdomen: Soft, no tenderness, no rigidity. 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 Extremities: 2+ edema in the lower extremity bilaterally Neurological: Normal cognition Rest of the physical exam is non contributory - Assessment and Plan (1) DM type 2 (diabetes mellitus, type 2) Current Visit: Yes Status: Chronic Assessment and Plan: Blood sugar is well controlled. Accu-Chek every AC/HS lispro low dose AC (2) Anemia Current Visit: No Status: Chronic Assessment and Plan: Most likely anemia of chronic disease. will transfuse one unit of PRBCs CBC 1 hour post transfusion GI had EGD, unremarkable. (3) Hypertension Current Visit: Yes Status: Chronic Assessment and Plan: Blood pressure suboptimally controlled. Patient is on amlodipine, isosorbide. and hydralazine increase metoprolol to 100mg/PO daily on hydralzine 10mg/IV Q6HR PRN for SBP >160. (4) Pancreatic mass Current Visit: Yes Status: Acute Assessment and Plan: CT abd/pelvis Pancreas: Peripancreatic inflammatory stranding mainly along the pancreatic body and tail. No drainable fluid collection. Hypodensity along the mid body, suspicious for an IPMN. No significant duct dilatation - GI consult on case. Possibly needs MRCP. (5) Pancreatitis Current Visit: Yes Status: Resolved Assessment and Plan: reports the pain has resolved, denies nausea or vomiting. will advance diet to full liquid continue with PPI and anti-emetics EGD: Unremarkable. Gi recommendations appreciated IV fluids discontinued, will encourage PO intake on fentanyl 25 mcg/IV Q3HRs PRN for pain control US liver to r/o gall stone/obstruction. (6) Renal mass Current Visit: Yes Status: Acute Assessment and Plan: CT scan which reveals a possible solid 3 cm renal mass in the left kidney. - Will consult oncology for further management. (7) Acute kidney injury superimposed on chronic kidney disease Current Visit: Yes Status: Acute Assessment and Plan: Kidney function appears to be stable. Avoid nephrotoxic medication Nephrology recommendation appreciated, no plan for hemodialysis at this point. sodium bicarb, goal serum bicarb >25 (8) CAD (coronary artery disease) Current Visit: Yes Status: Acute Assessment and Plan: Continue dual antiplatelet therapy with aspirin and Plavix. Cont BB ant statin. Patient denies chest pain at this point DVT Prophylaxis: On heparin 5000 units subcutaneous twice a day. - Time Spent with Patient Total time spent is greater than 50% in coordination of care (as documented) at patient's floor/unit and/or counseling patient: 30 minutes 25 - 35 minutes Plan of Care Discussed with: patient Internal Medicine: Result - Labs CBC & Chem 7: 05/26/18 00:59 05/26/18 00:59 Labs: Short CBC 05/26/18 Range/Units 00:59 WBC 4.5 (4.3-11.1) K/mcL Hgb 8.3 L (11.5-15.4) g/dL Hct 26.2 L (35.3-44.9) % Plt Count 163 (140-400) K/mcL Neutrophils # 3.0 (1.6-8.9) K/mcL BMP 05/26/18 00:59 Sodium 141 Potassium 4.0 Chloride 113 H Carbon Dioxide 16 L BUN 67 H Creatinine 5.03 H Glucose 115 H Calcium 7.7 L - ABG Interpretation ABG results: PT/INR, D-dimer PT 12.6 Seconds (9.4-12.1) H 05/22/18 03:36 Consult Discharge Plan - Plan Referrals: Susan Jules [Primary Care Provider] - (1) DM type 2 (diabetes mellitus, type 2) Qualifiers: Diabetes mellitus intermediate school teacher insulin use: with intermediate school teacher use Diabetes mellitus complication status: with kidney complications Diabetes mellitus complication detail: with chronic kidney disease Chronic kidney disease stage: stage 4 (severe) Qualified Code(s): E11.22 - Type 2 diabetes mellitus with diabetic chronic kidney disease; N18.4 - Chronic kidney disease, stage 4 (severe); Z79.4 - [facility] (current) use of insulin (2) Anemia Qualifiers: Anemia type: unspecified type Qualified Code(s): D64.9 - Anemia, unspecified (3) Hypertension Qualifiers: Hypertension type: essential hypertension Qualified Code(s): I10 - Essential (primary) hypertension (5) Pancreatitis Qualifiers: Chronicity: acute Pancreatitis type: other Acute pancreatitis complication: unspecified Qualified Code(s): K85.80 - Other acute pancreatitis without necrosis or infection (8) CAD (coronary artery disease) Qualifiers: Coronary Disease-Associated Artery/Lesion type: bypass graft [place] vs. transplanted heart: [place] heart Associated angina: angina presence unspecified Qualified Code(s): I25.810 - Atherosclerosis of coronary artery bypass graft(s) without angina pectoris
[2018-05-26] MEDS: *HR* FentaNYL (PF) 100 MCG/2 ML VIAL IVP PRN ×2 (13:20→15:52)
--- NOTE | 2018-05-26 15:28 | Nephrology Progress Note ---
Date of Encounter: 05/26/18 Time of Encounter: 15:27 - Assessment and Plan (1) Acute kidney injury superimposed on chronic kidney disease Current Visit: Yes Status: Acute Patient with acute kidney injury on chronic kidney disease. Her renal function seems to be stable with intravenous fluids. She has metabolic acidosis and is benefitting from supplemental bicarbonate. At the time my evaluation she does not need emergent dialysis. She does not ex hibit uremic symptoms. Continue hydration. Avoid nephrotoxic agents. Adjust medications for renal function. Ok for discharge from a renal standpoint. She will need to follow-up with her primary superintendent house Dr. Singleton 2-4 weeks after discharge. She should have a renal function panel drawn 7-10 days after discharge. . (2) Metabolic acidosis Current Visit: Yes Status: Acute (3) DM type 2 (diabetes mellitus, type 2) Current Visit: Yes Status: Chronic Qualifiers: Diabetes mellitus predatory animal exterminator insulin use: with predatory animal exterminator use Diabetes mellitus complication status: with kidney complications Diabetes mellitus complication detail: with chronic kidney disease Chronic kidney disease stage: stage 4 (severe) Qualified Code(s): E11.22 - Type 2 diabetes mellitus with diabetic chronic kidney disease; N18.4 - Chronic kidney disease, stage 4 (severe); Z79.4 - custodial (current) use of insulin (4) Hypertension Current Visit: Yes Status: Chronic Qualifiers: Hypertension type: essential hypertension Qualified Code(s): I10 - Essential (primary) hypertension (5) Anemia Current Visit: No Status: Chronic Qualifiers: Anemia type: unspecified type Qualified Code(s): D64.9 - Anemia, unspecified Subjective Principal diagnosis: NETTE on CKD Interval history: Patient seen. She has no new complaint. The remainder of her review of systems either negative or stable. Objective - Vital Signs Vital signs: Vital Signs Temp Pulse Resp BP Pulse Ox 05/26/18 15:15 98.5 F 65 17 177/50 94 05/26/18 13:15 184/67 05/26/18 10:33 98.7 F 83 16 204/66 93 05/26/18 09:17 201/64 05/26/18 06:37 98.9 F 73 15 185/69 93 05/26/18 04:09 98.4 F 80 16 181/68 95 05/25/18 23:09 99.2 F 77 16 188/64 95 05/25/18 20:57 96 05/25/18 18:35 98.3 F 77 16 183/70 96 Intake and Output 05/25/18 05/26/18 05/26/18 23:59 07:59 15:59 Intake Total 0 / 0 120 / 120 360 / 360 Output Total 200 / 200 500 / 500 100 / 100 Balance -200 / -200 -380 / -380 260 / 260 Intake: Oral 0 / 0 120 / 120 360 / 360 Output: Urine 200 / 200 500 / 500 100 / 100 Other: Meal Lunch Percent of Meal Consumed 0% Stool Size Moderate Moderate Stool Consistency loose loose Stool Color Brown Brown # Voids 1 # Bowel Movements 1 1 Weight 64.8 kg Blood Glucose* 125 94 113 - General Appearance General appearance: Present: well-developed, well-nourished EENT: Present: ATNC Neck: Present: supple Cardiology: Present: regular rate Integumentary: Present: warm and dry Neurologic: Present: alert and oriented x3 Psychiatric: Present: mood/affect appropriate - Lab 05/26/18 00:59 05/26/18 00:59 Most recent lab results Calcium 7.7 mg/dL (8.6-10.3) L 05/26/18 00:59 Phosphorus 5.6 mg/dL (2.7-4.5) H 05/26/18 00:59 Magnesium 1.6 mg/dL (1.6-2.6) 05/26/18 00:59 Urine Creatinine 64 mg/dL 05/24/18 06:05 Urine Total Protein 992 mg/dL (1-14) H 05/24/18 06:05 Consult Discharge Plan - Plan Referrals: Susan Jules [Primary Care Provider] -
[2018-05-26] MEDS ORDERED: *HR* OxyCODONE/APAP 5/325 TABLET PO PRN (16:35)
--- NOTE | 2018-05-26 17:44 | Oncology Inp Consult Note ---
<Diana Caputo L - Last Filed: 05/27/18 14:45> Date of Encounter: 05/26/18 Time of Encounter: 17:00 Assessment and Plan (1) Pancreatic mass Status: Acute Assessment and plan: CT with possible IPMN- Stable 6 mm pancreatic cystic lesion likely representing a small IPMN Check if pacemaker is MRI compatible and complete MRCP if able CEA and CA 19-9 normal Plan: GI following, defer continued management to GI (2) Renal mass Status: Acute Assessment and plan: CT notes Solid left renal mass highly concerning for renal cell carcinoma Patient states this has been followed closely with her urology team at [facility] Plan: Defer continued management to [facility] once her acute issues resolve, no need for further urgent inpatient evaluation in regards to renal mass Patient prefers to continue to follow up at [place] vs. referral to [facility] or [facility]. Obtain records from [place] - Data of Consult Patient: new to practice Consult date: 05/26/18 Requesting Physician: Renuka De Oliveira MD Primary Care Provider: Susan Jules - Consult Narrative Reason for consult: Renal mass History of present illness: Ms. Singleton is a 73 year old female with a history of ESRD, CAD s/p pacemaker, CABG and stents, hypertension, and diabetes who presented to the ER with complaint of severe abdominal pain for the past 3 days, found to have acute pancreatitis and suspicious pancreatic and renal lesions. She receives most of her medical care in [place] including her bilingual medical receptionist at [facility]. She had a fistula placed approximately 7 weeks ago anticipating need for dialysis. She reports history of renal cyst that has been followed by nephrology at [place]. CT of the abdomen/pelvis reveals: 1. Cirrhosis with interval development of [id number] ascites. 2. Stable 6 mm pancreatic cystic lesion likely representing a small IPMN. 3. No change minimal peripancreatic inflammation. 4. Progressing bilateral pleural effusions with lower lobe atelectasis or infiltrate. 5. Indeterminate right colon wall thickening may relate to under distention although colitis is not excluded. 6. Underdistended stomach with gastric wall thickening. Correlate clinical evidence to suggest gastritis. 7. Solid left renal mass highly concerning for renal cell carcinoma. She has been admitted with pancreatitis and NETTE. Oncology consulted for further evaluation of renal mass Past Med Surg Social Fam HX - Past Medical History Medical history: diabetes, hypertension, renal disease, other Additional medical history: Stage 4 Kidney Failure Psychiatric history: no psych history - Past Surgical History Surgical History: coronary bypass (CABG), hysterectomy, pacemaker/AICD Additional surgical history: Gallbadder removal , triple bypass 94 - Social History Smoking Status: Never smoker Smokeless Tobacco Status: No Alcohol use: none Drug use: none - Family History Mother Hx Family Cardiac Disorders: Yes (hypertension) Medications and Allergies RX: Biotin 1,000 mcg PO BID 03/19/16 [History] RX: Cholecalciferol (Vitamin D3) [Vitamin D3] 1,000 unit PO DAILY 03/19/16 [History] RX: Clopidogrel [Plavix] 75 mg PO DAILY 03/19/16 [History] RX: Insulin Glargine [Lantus] 20 unit SQ DAILY 03/19/16 [History] RX: Iron 65 mg PO DAILY 03/19/16 [History] RX: Isosorbide DInitrate [Isosorbide Dinitrate] 20 mg PO BID 03/19/16 [History] RX: Metoprolol Succinate [Toprol Xl] 100 mg PO DAILY #0 03/19/16 [History] RX: Furosemide [Lasix] 80 mg PO BID 05/22/18 [History] RX: Amlodipine Besylate 10 mg PO DAILY 05/23/18 [History] RX: Aspirin [Lo-Dose Aspirin EC] 81 mg PO DAILY 05/23/18 [History] RX: Atorvastatin Calcium 80 mg PO HS 05/23/18 [History] RX: Gabapentin [Neurontin] 300 mg PO DAILY 05/23/18 [History] RX: Hydralazine HCl 100 mg PO Q12H 05/23/18 [History] RX: Pantoprazole Sodium 40 mg PO DAILY 05/23/18 [History] RX: Vitamin E 400 unit PO DAILY 05/23/18 [History] RX: Sodium Bicarbonate 650 mg PO TID tablet 05/27/18 [Rx] Allergy/AdvReac Type Severity Reaction Status Date / Time olmesartan [From Benicar] Allergy Mild Gastrointestinal Verified 05/23/18 14:20 Upset Labetalol Allergy Gastrointestinal Verified 05/23/18 14:20 Upset Constitutional: Present: anorexia, fatigue, weakness, weight loss. Absent: chills, fever(s) Eyes: Absent: change in vision Nose, mouth and throat: Absent: odynophagia Cardiovascular: Absent: chest pain Respiratory: Present: dyspnea on exertion Gastrointestinal: Present: abdominal pain, nausea. Absent: change in bowel habits, vomiting Genitourinary: Absent: dysuria Musculoskeletal: Present: muscle weakness Integumentary: Absent: rash, wounds Neurological: Present: as per HPI Psychiatric: Present: as per HPI Hematologic/Lymphatic: Present: as per HPI Oncology - Exam - Constitutional General appearance: cooperative, no acute distress, no febrile - Head Head exam: Present: atraumatic - ENT ENT exam: Present: mucous membranes moist, normal oropharynx - Respiratory Respiratory exam: Present: CTAB. Absent: respiratory distress - Cardiovascular Cardiovascular exam: Present: RRR - GI/Abdominal GI/Abdominal exam: Present: normal bowel sounds, soft, tenderness - Extremities Exam Extremities exam: Present: normal inspection. Absent: calf tenderness - Neurological Exam Neurological exam: Present: alert, oriented X3, no focal deficits, strengths equal and symetr throughout - Psychiatric Psychiatric exam: Present: normal affect, normal mood - Skin Skin exam: Present: dry, intact, pallor Consult Discharge Plan - Plan Referrals: Susan Jules [Primary Care Provider] - Inpatient Charges Provider: Dr. Karla López <Lico López - Last Filed: 05/28/18 16:07> Date of Encounter: 05/28/18 - Data of Consult Requesting Physician: Renuka De Oliveira MD Primary Care Provider: Susan Jules - Attending Attestation 73-year-old female hospitalized with abdominal pain, with diagnosis of pancreatitis, CT scan of the abdomen shows findings suggestive of inflammation, pancreatic cystic lesion possibly I PMN, left kidney lesion suspicious for neoplasm. Oncology consulted for kidney mass. Patient denies any hematuria or any pain related to her kidney mass, patient also reports that she follows up with her physicians at [facility] who is monitoring her kidney lesion for past several years. We will obtain outside records patient can follow up with us/outside physician for continued monitoring or workup of the kidney lesion once acute issues have resolved. Patient was discussed imaging findings bedside on 05/27/18. I examined this patient and my medical decision-making was reviewed with the Advanced Practice Nurse, iDana Caputo. I agree with the documented findings, disposition and treatment plan as described except to the extent set forth below. Inpatient Charges Provider: Dr. Karla López Consult - Inpatient: [id number]
[2018-05-27 05:01] LABS: Basophils % 0.9 %; Eosinophils # 0.3 K/mcL (0.0-0.6); Eosinophils % 6.4 %; Hemoglobin 8.3 g/dL (11.5-15.4); Immature Granulocytes % 0.2 % (0-4); Lymphocytes # 0.8 K/mcL (0.6-4.6); Lymphocytes % 17.3 %; Mean Corpuscular HGB Conc 30.7 g/dL (31.6-35.5); Mean Corpuscular Hemoglobin 28.8 pg (28.0-33.3); Mean Corpuscular Volume 93.8 fL (83.0-100.0); Mean Platelet Volume 10.3 fL (9.4-12.4); Monocytes # 0.5 K/mcL (0.0-1.3); Monocytes % 9.6 %; Neutrophils # 3.1 K/mcL (1.6-8.9); Platelet Count 182 K/mcL (140-400); Red Blood Count 2.88 M/mcL (3.82-4.97); Red Cell Distribution Width 15.8 % (11.5-14.5); Segmented Neutrophils % 65.6 %
[2018-05-27 05:03] LABS: Hematocrit 26.9 % (35.3-44.9); Hemoglobin 8.3 g/dL (11.5-15.4); Mean Corpuscular HGB Conc 30.9 g/dL (31.6-35.5); Mean Corpuscular Hemoglobin 28.9 pg (28.0-33.3); Mean Corpuscular Volume 93.7 fL (83.0-100.0); Mean Platelet Volume 10.5 fL (9.4-12.4); Platelet Count 179 K/mcL (140-400); Red Blood Count 2.87 M/mcL (3.82-4.97); Red Cell Distribution Width 15.7 % (11.5-14.5)
[2018-05-27 05:28] LABS: Calcium 7.9 mg/dL (8.6-10.3); Potassium 4.2 mEq/L (3.5-5.1)
[2018-05-27] MEDS: Ondansetron 4 MG/2 ML VIAL IVP PRN ×2 (06:39→14:35)
[2018-05-27] MEDS: Insulin LISPRO 300 UNITS/3 ML VIAL SQ SCH ×2 (07:42→10:49)
[2018-05-27] MEDS: *HR* Heparin 5,000 UNIT/ML VIAL SQ SCH (07:43)
[2018-05-27] MEDS ORDERED: Isosorbide MONOnitrate (24 HR) 60 MG TAB.ER.24H PO SCH (09:00)
[2018-05-27] MEDS ORDERED: NIFEdipine XL (24 HR) 60 MG TAB.ER.24 PO SCH (09:00)
[2018-05-27] MEDS: hydrALAZINE 25 MG TABLET PO SCH (10:11)
[2018-05-27] MEDS: Metoprolol XL (24 HR) Succ 50 MG TAB.ER.24H PO SCH (10:11)
[2018-05-27] MEDS: Aspirin Enteric Coated 81 MG Tablet PO SCH (10:11)
[2018-05-27 10:32] LABS: ANA IgG by ELISA NONE DETECTED (None Detected); Immunoglobulin G Subclass 4 10 mg/dL (1-123)
[2018-05-27 10:41] VITALS: BP 188/72
--- NOTE | 2018-05-27 11:26 | Discharge Summary ---
Orders not resulted at time of discharge: Pending orders 05/28/18 04:00 Basic Metabolic Panel AM 0400 CBC no Diff [Complete Blood Count w/o Diff] [HEME] AM 04005/29/18 04:00 Basic Metabolic Panel AM 0400 CBC no Diff [Complete Blood Count w/o Diff] [HEME] AM 04005/30/18 04:00 Basic Metabolic Panel AM 0400 CBC no Diff [Complete Blood Count w/o Diff] [HEME] AM 04005/31/18 04:00 Basic Metabolic Panel AM 0400 CBC no Diff [Complete Blood Count w/o Diff] [HEME] AM 04006/01/18 04:00 Basic Metabolic Panel AM 0400 CBC no Diff [Complete Blood Count w/o Diff] [HEME] AM 04006/02/18 04:00 Basic Metabolic Panel AM 0400 CBC no Diff [Complete Blood Count w/o Diff] [HEME] AM 04006/03/18 04:00 Basic Metabolic Panel AM 0400 CBC no Diff [Complete Blood Count w/o Diff] [HEME] AM 040 Date of Encounter: 05/27/18 Time of Encounter: 10:00 - Discharge Diagnosis (1) DM type 2 (diabetes mellitus, type 2) Priority: Secondary Status: Chronic Qualifiers: Diabetes mellitus intermodal customer service insulin use: with nursing home use Diabetes mellitus complication status: with kidney complications Diabetes mellitus complication detail: with chronic kidney disease Chronic kidney disease stage: stage 4 (severe) Qualified Code(s): E11.22 - Type 2 diabetes mellitus with diabetic chronic kidney disease; N18.4 - Chronic kidney disease, stage 4 (severe); Z79.4 - terminal gauger (current) use of insulin (2) Anemia Priority: Secondary Status: Chronic Qualifiers: Anemia type: unspecified type Qualified Code(s): D64.9 - Anemia, unspecified (3) Hypertension Priority: Secondary Status: Chronic Qualifiers: Hypertension type: essential hypertension Qualified Code(s): I10 - Essential (primary) hypertension (4) Pancreatic mass Priority: Primary Status: Acute (5) Pancreatitis Priority: Primary Status: Resolved Qualifiers: Chronicity: acute Pancreatitis type: other Acute pancreatitis complication: unspecified Qualified Code(s): K85.80 - Other acute pancreatitis without necrosis or infection (6) Renal mass Priority: Primary Status: Acute (7) Acute kidney injury superimposed on chronic kidney disease Priority: Primary Status: Acute (8) CAD (coronary artery disease) Priority: Secondary Status: Acute Qualifiers: Coronary Disease-Associated Artery/Lesion type: bypass graft [place] vs. transplanted heart: [place] heart Associated angina: angina presence unspecified Qualified Code(s): I25.810 - Atherosclerosis of coronary artery bypass graft(s) without angina pectoris Hospital course: Ms. Singleton is a 73 year old female present to ER for abdominal pain. Patient was found elevated lipase and CT abdomen shows consistent with acute p ancreatitis. Patient was placed on nothing by mouth, IV fluid. After treatment, patient's abdominal pain subsided. Patient has anemia, 1 unit PRBC was transfused. GI consult saw patient and had EGD done, which was unremarkable. By abdominal CT, patient was found pancreas cyst suspect IPMN and renal mass. Patient is follow doctor's in [facility] for long time and would like further workup in [facility]. I called [facility] transfer center, plan to transfer patient as medical bed available. I have seen and examined the patient today. Still complaint mild nausea, has diarrhea which was watery. Mild epigastric tenderness on deep palpation. Vitals are stable. Patient is stable to transfer to [facility] for further management. Will continue treatment in our hospital before the transfer. Discharge discussed with: patient - Time Spent with Patient Total time spent providing and/or coordinating discharge services: 40 minutes Time spent: Greater than 30 minutes - Discharge Medications Prescriptions: New Sodium Bicarbonate 650 mg PO TID tablet Continue Furosemide [Lasix] 80 mg PO BID Amlodipine Besylate 10 mg PO DAILY Aspirin [Lo-Dose Aspirin EC] 81 mg PO DAILY Atorvastatin Calcium 80 mg PO HS Gabapentin [Neurontin] 300 mg PO DAILY Hydralazine HCl 100 mg PO Q12H Vitamin E 400 unit PO DAILY Pantoprazole Sodium 40 mg PO DAILY Biotin 1,000 mcg PO BID Clopidogrel [Plavix] 75 mg PO DAILY Iron 65 mg PO DAILY Metoprolol Succinate [Toprol Xl] 100 mg PO DAILY #0 Insulin Glargine [Lantus] 20 unit SQ DAILY Isosorbide DInitrate [Isosorbide Dinitrate] 20 mg PO BID Cholecalciferol (Vitamin D3) [Vitamin D3] 1,000 unit PO DAILY Home Medications: Biotin 1,000 mcg PO BID 03/19/16 [History] Cholecalciferol (Vitamin D3) [Vitamin D3] 1,000 unit PO DAILY 03/19/16 [History] Clopidogrel [Plavix] 75 mg PO DAILY 03/19/16 [History] Insulin Glargine [Lantus] 20 unit SQ DAILY 03/19/16 [History] Iron 65 mg PO DAILY 03/19/16 [History] Isosorbide DInitrate [Isosorbide Dinitrate] 20 mg PO BID 03/19/16 [History] Metoprolol Succinate [Toprol Xl] 100 mg PO DAILY #0 03/19/16 [History] Furosemide [Lasix] 80 mg PO BID 05/22/18 [History] Amlodipine Besylate 10 mg PO DAILY 05/23/18 [History] Aspirin [Lo-Dose Aspirin EC] 81 mg PO DAILY 05/23/18 [History] Atorvastatin Calcium 80 mg PO HS 05/23/18 [History] Gabapentin [Neurontin] 300 mg PO DAILY 05/23/18 [History] Hydralazine HCl 100 mg PO Q12H 05/23/18 [History] Pantoprazole Sodium 40 mg PO DAILY 05/23/18 [History] Vitamin E 400 unit PO DAILY 05/23/18 [History] Sodium Bicarbonate 650 mg PO TID tablet 05/27/18 [Rx] Allergies/Adverse Reactions: Allergy/AdvReac Type Severity Reaction Status Date / Time olmesartan [From Benicar] Allergy Mild Gastrointestinal Verified 05/23/18 14:20 Upset Labetalol Allergy Gastrointestinal Verified 05/23/18 14:20 Upset Date of admission: 05/22/18 15:15 Primary care physician: Susan Jules Consults: 05/22/18 05:18 Consult to Urology [CONS] Routine Consulting Provider: Urology Tyesha Reason for Consult: suspicion for RCC on CT, hx of ESRD not yet on HD Call Completed: No 05/22/18 05:19 Consult to Gastroenterology [CONS] Routine Consulting Provider: Gastroenterology Tyesha Reason for Consult: Acute pancreatitis, CT with concern for IPMN Call Completed: No 05/22/18 05:20 Consult to Nephrology [CONS] Routine Consulting Provider: [facility]/CRISTINA/GURVINDER/KERRY Reason for Consult: ESRD not yet on HD, fistula in place. Hx of renal cyst, CT concerning for RCC. Call Completed: No 05/24/18 08:01 Consult to Nurse Navigator [CONS] Routine Comment: hd 05/26/18 11:26 Consult to Oncology [CONS] Routine Consulting Provider: Oncology [facility] Tyesha Reason for Consult: Renal mass, concern for renal cell carcinoma Call Completed: Yes Discharging clinician: Renuka De Oliveira Anticipated date of discharge: 05/27/18 - Constitutional Vitals: Temp Pulse Resp BP Pulse Ox 98.0 F 73 16 188/72 93 05/27/18 10:38 05/27/18 10:38 05/27/18 10:38 05/27/18 10:38 05/27/18 10:38 General appearance: Present: A&O X 3, pleasant, no acute distress, answers questions appropriately Exam: Physical exam Vitals: Reviewed. General: Alert and oriented 4. No distress Cardiovascular: RRR, normal S1 & S2, no rubs, murmurs or gallops. Lungs: Clear to auscultation bilaterally, no wheezes or crackles. Abdomen: Soft, mild tenderness on epigastric area, no rigidity, no rebound or guarding. Extremities: 2+ edema in the lower extremity bilaterally Neurological: Normal cognition Rest of the physical exam is non contributory - Patient Status Disposition: Transfer Critical Access Hosp Condition: Fair Functional capacity at discharge: uses cane/walker Overall status at discharge: patient is progressing back to baseline - Discharge Instructions Follow Up With: Susan Jules [Primary Care Provider] - - Diet and Activity Activity: increase activity as tolerated Diet: other (Full liquid diet)
[2018-05-27] MEDS ORDERED: Ondansetron 4 MG/2 ML VIAL ONE (14:28)
== END 2018-05-27 14:24 | disposition critical access hospital (66) | DRG 439 ==
LOC: 2ANU 18:43 → EMEROOARM 18:43 → 2ANU 05-22 01:15 → SUATTDRO 05-22 15:15
PROVIDERS: ADMIT Family Medicine; ATTEND Internal Medicine